=== PATIENT | female | born 1965 | race Caucasian/White ===

== ENCOUNTER 2018-05-14 01:01 | Outpatient (CLI) | payer OTHER, SELFPAY ==
--- NOTE | 2018-05-14 08:00 | DI.MAMMO_ITS ---
SYMPTOMS/DIAGNOSIS: SCREENING, PREVENTATIVE CARE, Z00.00 MAMMOGRAM: Mammograms were interpreted according to the usual protocol including computer analysis with CAD system, tomosynthesis and C view imaging. The breast tissue is heterogeneously radiodense which lowers the sensitivity of the study. There is no dominant mass. There are no suspicious calcifications. SUMMARY: No evidence of malignancy, Category I, yearly screening mammography is recommended. Breast density Category C. MQSA ASSESSMENT OF FINDINGS: Negative. Category 1. Patient will receive a letter notifying them of these results. Bi-RADS category C. The breasts are heterogeneously dense, which may obscure small masses.
== END 2018-05-14 01:21 ==
PROVIDERS: PCP Physician Assistant Medical; Visit Provider Physician Assistant Medical
DX: Z00.00 Encounter for general adult medical examination without abnormal findings (principal); Z12.31 Encounter for screening mammogram for malignant neoplasm of breast
CPT/HCPCS: 77063; 77067

== ENCOUNTER 2018-09-03 00:14 | Outpatient (CLI) | payer OTHER, SELFPAY ==
--- NOTE | 2018-09-03 08:21 | DI.US_ITS ---
SYMPTOM/DIAGNOSIS: POSTMENOPAUSAL BLEEDING, N95.0 PELVIC ULTRASOUND: Transabdominal and transvaginal exams were performed. The uterus measures 9 by 4.5 by 5.6 cm. No fibroids are identified. The endometrial stripe measures 10 mm. in thickness. There is abnormally thickened for a postmenopausal patient. No focal endometrial abnormality is visible. There is a 2.9 cm. cyst on the right ovary and a 2.1 cm. cyst on the left ovary. There is no evidence of suspicious mass or ovarian torsion. A 3.7 cm. cyst is seen at the inferior pole of the left kidney. There is no evidence of hydronephrosis. IMPRESSION: Thickened endometrium to 10 mm. Bilateral ovarian cysts.
== END 2018-09-03 00:34 ==
PROVIDERS: PCP Physician Assistant Medical; Visit Provider Physician Assistant Medical
DX: N95.0 Postmenopausal bleeding (principal); R93.89 Abnormal findings on diagnostic imaging of other specified body structures; N83.291 Other ovarian cyst, right side; N83.292 Other ovarian cyst, left side
CPT/HCPCS: 76830; 76856

== ENCOUNTER 2018-09-15 12:40 | Outpatient (REF) | payer OTHER, SELFPAY ==
--- NOTE | 2018-09-15 10:00 | PAPFT_PTH ---
PATIENT: Estrella Clark LOC: [facility] U#:[id number] AGE/SX: 53/F ROOM: RE09/15/[address]: Shai Sanders MD : 1965 BED: DIS: 09/15/2018 SPEC #: [id number] RECD: 09/15/18 18:12 STATUS: ULYSSES REQ #: [id number] ARIANNA: 09/15/18 10:[address]: Shai Sanders DEPT: [facility] Cytology RECD BY: Lilian Martines ENTERED: 09/15/18 18:12 SP TYPE: PAPFT OTHR DR: Mo Beasley Tissues: 1 - CX/ENDOCX FOR PAP SMEARS Procedures: PAP THIN PREP/UVM Screening HPV DNA PROBE Comments: [id number]
--- NOTE | 2018-09-15 10:00 | CER_PTH ---
PATIENT: Estrella Clark LOC: [facility] U#:[id number] AGE/SX: 53/F ROOM: RE09/15/[address]: Shai Sanders MD : 1965 BED: DIS: 09/15/2018 SPEC #: [id number] RECD: 09/15/18 18:00 STATUS: ULYSSES REBelkys #: [id number] ARIANNA: 09/15/18 10:[address]: Shai Sanders DEPT: Surgical Specimen RECD BY: Lilian Martines ENTERED: 09/15/18 18:01 SP TYPE: CER OTHR DR: Mo Beasley Tissues: 1 - CERVICAL BIOPSY 2 - ENDOMETRIUM BX/CURRETTE Procedures: GROSS AND MICRO LEVEL 4 Comments: [id number]
== END 2018-09-15 13:00 ==
LOC: LBN 12:40
PROVIDERS: PCP Physician Assistant Medical; Visit Provider Obstetrics & Gynecology
DX: N84.0 Polyp of corpus uteri (principal); N84.1 Polyp of cervix uteri; N85.8 Other specified noninflammatory disorders of uterus; N95.0 Postmenopausal bleeding
CPT/HCPCS: 88142; 88305; 87624

== ENCOUNTER 2018-11-05 08:03 | Day surgery (SDC) | payer OTHER, SELFPAY ==
[2018-11-05 08:18] VITALS: BP 122/72; PULSE 56; RESP 16; TEMP 35.1; O2SAT 100
[2018-11-05] MEDS: Lactated Ringers 1,000 ML 125 ML IV (08:37)
[2018-11-05 08:47] LABS: HGB 14.8 g/dL (12.0-15.5)
[2018-11-05] MEDS: Lidocaine 1% Pres-Free 5 ML VIAL (09:17)
--- NOTE | 2018-11-05 09:21 | ENDOMET_PTH ---
PATIENT: Estrella Clark LOC: [facility] U#:[id number] AGE/SX: 53/F ROOM: RE11/05/[address]: Shai Sanders MD : 1965 BED: DIS: 11/05/2018 SPEC #: [id number] RECD: 11/05/18 12:57 STATUS: ULYSSES REQ #: [id number] ARIANNA: 11/05/18 09:[address]: Shai Sanders DEPT: Surgical Specimen RECD BY: Lilian Martines ENTERED: 11/05/18 12:58 SP TYPE: Endomet OTHR DR: Mo Beasley Tissues: 1 - ENDOMETRIUM BX/CURRETTE Procedures: GROSS AND MICRO LEVEL 4 Comments: [id number]
--- NOTE | 2018-11-05 09:37 | W.PM.OP ---
Date of service: 11/05/18 Time of Service: 09:37 Operative Note DATE OF PROCEDURE: 11/05/18 PRE-OP DIAGNOSIS: Postmenopausal bleeding. Endometrial polyp POST-OP DIAGNOSIS: same PROCEDURE: Hysteroscopy D&C SURGEON: Shai Sanders ANESTHESIA: MAC and local ESTIMATED BLOOD LOSS: 0 PATHOLOGY: other (Endometrial curettings ) COMPLICATIONS: None Patient was transported to: same day Patient's condition: stable Indications: Postmenopausal bleeding. Endometrial polyp on office biopsy. Findings: Small broad based EM polyp near the right tubal ostia Procedure Description: The patient was taken to the operating room and after adequate sedation was achieved, the patient was placed in lithotomy position. The patient was prepped and draped in the usual sterile fashion. A weighted speculum was placed in the vagina with good visualization of the cervix. A paracervical block with 10cc of 1% lidocaine was placed. The 5mm 30 degree hysteroscope with NS distention media was advanced easily. A broad based small polyp was noted near the right tubal ostia. The hysteroscope was removed and cervix dilated with Javier dilators. A sharp curettage was performed and specimen was submitted to pathology. Excellent hemostasis was noted. All instrumentation was removed. The procedure was tolerated well and patient transferred to PACU in stable condition. Sponge and instrument counts were correct at the conclusion of the procedure.
[2018-11-05 09:57] VITALS: BP 113/61; PULSE 51; RESP 16; TEMP 35.7; O2SAT 100
== END 2018-11-05 10:40 | disposition home or self-care (01) ==
PROVIDERS: PCP Physician Assistant Medical; Visit Provider Obstetrics & Gynecology
PROC: 0UDB8ZZ Extraction of Endometrium, Via Natural or Artificial Opening Endoscopic (ICD-10-PCS; CPT 58558; principal; 2018-11-05 09:15)
DX: N95.0 Postmenopausal bleeding (principal); N84.0 Polyp of corpus uteri
CPT/HCPCS: 58558; 36415; 88305; 85014; 85018; J0131; J1100; J1885; J2405

== ENCOUNTER 2019-11-09 02:01 | Outpatient (CLI) | payer OTHER, SELFPAY ==
--- NOTE | 2019-11-09 | DI.MAMMO_ITS ---
EXAM: MAMMO SCREENING CLINICAL HISTORY: SCREENING, Z12.31, [facility], Z00.00 TECHNIQUE: Mammograms were interpreted according to the usual protocol including computer analysis w [employer] system, tomosynthesis and C-view imaging. FINDINGS: The breasts are heterogeneously dense. No dominant mass or clumped microcalcification is identified in either breast. Current examination is compared with previous examinations including April and there has been no gross interval change in appearance in comparison with the previous studies. IMPRESSION: No specific evidence of malignancy at this time. Routine screening examinations are suggested at yea rly intervals due to the family history of breast carcinoma. Category 1. Breast density, category C . BI-RADS Cat 1 - Negative. Breast Density - Category C - Heterogeneously dense.
== END 2019-11-09 02:21 ==
PROVIDERS: PCP Physician Assistant Medical; Visit Provider Physician Assistant Medical
DX: Z12.31 Encounter for screening mammogram for malignant neoplasm of breast (principal); Z00.00 Encounter for general adult medical examination without abnormal findings; Z80.3 Family history of malignant neoplasm of breast
CPT/HCPCS: 77063; 77067

== ENCOUNTER 2020-08-24 15:16 | Outpatient (REF) | payer OTHER, SELFPAY ==
[2020-08-24 18:48] LABS: Anion Gap 9.4 mmol/L (3-11); BUN 11 mg/dL (7-18); CO2 26.6 mmol/L (21.0-32.0); CREATININE 0.84 mg/dL (0.55-1.02); Calcium 9.2 mg/dL (8.5-10.1); Calculated LDL 105 mg/dL (<100); Chloride 104 mmol/L (98-107); Cholesterol 211 mg/dL (<200); Glucose 103 mg/dL (74-106); HDL Cholesterol 83 mg/dL (40-60); Potassium 4.5 mmol/L (3.5-5.1); Sodium 140 mmol/L (136-145); TSH (W/Ref FT4) 1.94 uIU/mL (0.36-3.74); Triglyceride 118 mg/dL (<150)
== END 2020-08-24 15:36 ==
LOC: NCHCN 15:16
PROVIDERS: PCP Physician Assistant Medical; Visit Provider Physician Assistant Medical
DX: Z00.00 Encounter for general adult medical examination without abnormal findings (principal); Z13.220 Encounter for screening for lipoid disorders; Z13.29 Encounter for screening for other suspected endocrine disorder
CPT/HCPCS: 80048; 80061; 84443

== ENCOUNTER 2021-01-23 22:27 | Observation (INO) | payer OTHER, SELFPAY ==
[2021-01-23] VITALS (10 sets, daily range): BP systolic 126–133; BP diastolic 68–71; PULSE 80–98; RESP 11–23; TEMP 36.9; O2SAT 95–99
--- NOTE | 2021-01-23 22:29 | W.ED.GENAD ---
Discharge Plan Disposition Patient Disposition: [facility] INPATIENT Condition: Stable Discharge Details Chief Complaint: GenMedical Clinical Impression: Ataxia Primary Care Provider: Mo Bealsey ED Provider: Karlee Le Home Meds and New Rx's Prescriptions: No Action cholecalciferol (vitamin D3) 1,000 unit capsule 1,000 unit PO DAILY RF: 0 Medical Decision Making Patient is a pleasant 55-year-old female presenting today with chief complaint of feeling generally unwell and unsteady. Primary symptom is feeling dissociated. Reports that symptoms came on suddenly at approximately 8 PM when she was sitting. She is patient says that she felt that her speech has been slowed and she has been having difficulty with ambulation and feeling unsteady. She denies any headache, visual changes. No focal deficit. Denies any nausea or vomiting. No chest pain or shortness of breath. Denies any palpitations. Patient does report that she fell while running this morning she did fall. Denies striking her head but states she suffers from whiplash. States that this pain did side throughout the course of the day. Is denying any neck pain currently. Reports the remaining of the day she was swimming and spending time with her family. Symptoms came on when she was at rest tonight. On exam, patient appears nontoxic. Vital signs are within normal limits. She appears well-hydrated. Lungs are clear. No lower extremity edema or calf tenderness. Neurologic exam is intact although patient feels that her speech is slower than typical. She also has significant difficulty with tandem gait and falls frequently. She does have normal Romberg, lcfuwk-xp-ysoq testing. No weakness is appreciated. No visual changes. At this time, differential includes CVA, cervical arterial dissection, metabolic derangement, thyroid dysfunction, arrhythmia versus other. Plan for CTA head and neck and labs. Discussed this plan with the patient who is in agreement. EKG was obtained and reviewed by Dr. Wong. There was significant artifact. Conclusion was atrial fibrillation. However, when watching the patient on the monitor she does not appear this irregular. Rate of 96. When she has calmed down slightly we will repeat the EKG. Labs reviewed. No leukocytosis. Stable H&H. No significant abnormalities. Potassium was slightly low at 3.3. Troponin within normal limits. TSH elevated at 4.75 but free T4 reflex is 0.99. CT reviewed by radiologist: FINDINGS: ANTERIOR CIRCULATION: Right internal carotid artery: Unremarkable. Intracranial segment is patent with no significant stenosis. No aneurysm. Right middle cerebral artery: Unremarkable. No occlusion or significant stenosis. No aneurysm. Right anterior cerebral artery: Unremarkable. No occlusion or significant stenosis. No aneurysm. Left internal carotid artery: Unremarkable. Intracranial segment is patent with no significant stenosis. No aneurysm. Left middle cerebral artery: Unremarkable. No occlusion or significant stenosis. No aneurysm. Left anterior cerebral artery: Unremarkable. No occlusion or significant stenosis. No aneurysm. POSTERIOR CIRCULATION: Right vertebral artery: Unremarkable. No occlusion or significant stenosis. No aneurysm. Left vertebral artery: Unremarkable. No occlusion or significant stenosis. No aneurysm. Basilar artery: Unremarkable. No occlusion or significant stenosis. No aneurysm. Right posterior cerebral artery: Unremarkable. No occlusion or significant stenosis. No aneurysm. Left posterior cerebral artery: Unremarkable. No occlusion or significant stenosis. No aneurysm. Brain: No definite mass, mass effect, or midline shift. Cerebral ventricles: No ventriculomegaly. Bones/joints: Unremarkable. No acute fracture. Soft tissues: There are multiple scalp calcifications. IMPRESSION: No large vessel stenosis or occlusion. FINDINGS: Right common carotid artery: No stenosis. No dissection or occlusion. Right internal carotid artery: No stenosis of the extracranial segment. No dissection or occlusion. Right external carotid artery: No occlusion or stenosis of the origin. Left common carotid artery: No stenosis. No dissection or occlusion. Left internal carotid artery: No stenosis of the extracranial segment. No dissection or occlusion. Left external carotid artery: No occlusion or stenosis of the origin. Right vertebral artery: No stenosis. No dissection or occlusion. Left vertebral artery: No stenosis. No dissection or occlusion. Soft tissues: Normal. No significant soft tissue swelling. Bones/joints: No acute fracture. IMPRESSION: No stenosis or occlusion. Reevaluated the patient. She reports feeling somewhat improved. She does look much calmer. Repeated neurologic exam. She seems much more brisk in her ability to perform the tasks including mhdexb-lm-zcej testing. Ambulation does appear improved and more sure footed. She continues to have difficulty with tandem gait however. With this focal finding, I remain concerned for potential injury nail pathology and plan to admit for MRI tomorrow. I did discuss this plan with the patient is in agreement. Consulted with Dr. Fernandez who agrees to admission for continued monitoring and MRI for morning. HPI General Mode of arrival: EMS. Date/Time Provider Initiated Documentation: 01/23/21 22:29. Limitations to Documentation: no limitations. Information obtained by: patient, EMS and RN notes reviewed. History of Present Illness 55 year old F presents to the emergency department with the chief complaint of unsteady, feels disassociated, described as moderate, and is localized to the head. Patient started experiencing this hour(s) (2019 this evening) and it has been constant. Immobilization improves symptom(s), Movement worsens symptoms . Patient notes denies confusion, chest pain, diaphoresis, fever/chills, headaches, nausea/vomiting, shortness of breath and weakness. Patient did receive the following treatments prior to arrival, none Related Data Home Medications Medication Instructions Recorded Confirmed cholecalciferol (vitamin D3) 25 1,000 unit PO DAILY 09/15/18 11/05/18 mcg (1,000 unit) capsule Allergies Allergy/AdvReac Type Severity Reaction Status Date / Time penicillin V Allergy Verified 09/12/20 15:26 Review of Systems Constitutional Constitutional: Reports as per HPI, Denies chills, Denies fever(s), Denies frequent falls, Denies headache(s), Denies snoring and Denies weakness Eyes Eyes: Reports as per HPI, Denies blurry vision, Denies change in vision and Reports photophobia ENT Ears, Nose, Mouth, and Throat: Reports vertigo, Reports dizziness, Denies headache(s), Denies neck pain and Reports disequilibrium Cardiovascular Cardiovascular: Reports as per HPI, Denies chest pain, Reports rapid heart rate, Denies lightheadedness, Denies radiating jaw, neck or arm pain, Denies dyspnea and Denies dyspnea on exertion Respiratory Respiratory: Reports as per HPI, Denies chest congestion, Denies cough, Denies dyspnea, Denies dyspnea on exertion, Denies snoring, Denies stridor and Denies wheezing Gastrointestinal Gastrointestinal: Reports as per HPI, Denies abdominal pain, Denies change in bowel habits, Denies nausea and Denies vomiting Musculoskeletal Musculoskeletal: Reports as per HPI, Reports abnormal gait, Denies back pain, Denies myalgias, Denies muscle cramps, Denies neck pain and Denies numbness Integumentary/Breasts Skin/Breast: Reports as per HPI and Denies rash Neurologic Neurologic: Reports as per HPI, Denies abnormal speech, Reports abnormal gait, Denies behavioral changes, Denies confusion, Reports vertigo, Reports dizziness, Denies frequent falls, Denies headache(s), Denies localized weakness, Denies numbness, Denies sensory deficit, Reports disequilibrium and Denies weakness Psychiatric Psychiatric: Denies behavioral changes and Denies confusion Allergic/Immunologic Allergic/Immunologic: Denies wheezing [facility] Medical History Postmenopausal bleeding Surgical History History of delivery Social History Smoking/Tobacco Use Status: Never Smoking risk assessment performed?: Yes Alcohol Intake: current Drug use: Never Substance use type: does not use Exam Const General: cooperative, comfortable, no acute distress, well developed, well groomed and ill appearing acutely Nutritional Appearance: average body habitus and well nourished Orientation: alert, awake and oriented x3 HENMT Head: normal to inspection, no palpable skull fracture, normocephalic and atraumatic Ears: hearing grossly normal bilaterally, external ears normal and TM's normal bilaterally General nose exam: external nose normal Mouth: oral mucosae normal and moist mucous membranes Throat: posterior oropharynx normal Eyes General: appearance normal, both eyes and all related structures Visual Rivas: normal visual rivas by confrontation Alignment and Position: alignment normal Periorbital: periorbital findings normal Eyelids: eyelids normal Sclera: sclerae normal Cornea: corneas normal Pupils: PERRL EOM: EOM intact bilaterally Neck Neck: normal visual inspection, full ROM, no lymphadenopathy and no meningeal signs Resp Effort & Inspection: normal respiratory effort, able to speak in complete sentences and no respiratory distress Auscultation: clear to auscultation bilaterally, no rales, no rhonchi and no wheezes Cardio Rate: regular rate Rhythm: regular rhythm Heart Sounds: S1 normal and S2 normal GI Inspection: normal to inspection and non-distended Palpation: soft, no hepatosplenomegaly, not firm, no guarding, not rigid and nontender Percussion: normal to percussion Auscultation: normal bowel sounds Back/Spine/Pelvis Cervical Spine: normal cervical lordosis and cervical ROM normal Skin General skin exam: no rashes or lesions noted Neuro General: patient alert, patient awake and patient oriented x3 Cranial Nerves: CN's II-XI intact bilaterally Cognition: normal cognition Speech: speech normal Gait: normal gait Motor: muscle tone normal throughout, strength 5/5 throughout, no pronator drift, no movement abnormalities noted and no fasciculations Sensory Exam: no sensory deficits noted DTR's: Rt Brachioradialis: 2+, Lt Brachioradialis: 2+, Rt Patellar: 2+ and Lt Patellar: 2+ Coordination: vtgybm-qm-dloz test normal, vnor-zv-gwaw test normal, Romberg test normal, tandem gait abnormal (unable to preform, falls quickly) and Does not sway with eyes open Extrem General: normal to inspection, capillary refill normal, no pedal edema and no calf tenderness Psych Appearance: grossly normal and well kempt Mental Status: mental status grossly normal Speech and Movement: speech and movement normal
--- NOTE | 2021-01-23 22:30 | RT.EKG_ITS ---
APPROVED REPORT Exam: Resting ECG Reason for Exam: general unwell, dizziness Patient Location: E HR:96 bpm ECG Measurements Heart Rate 96 AXIS OR [id number] P [id number] QRSd 133 QRS 56 QT 376 T 46 QTc 475 Conclusion Atrial fibrillation...V-rate 70-111, irreg A-activity Nonspecific intraventricular conduction delay...QRSd >115mS, not LBBB/RBBB. Artifact. Afib. I have reviewed and interpreted ECG and agree with software generated interpretation.
--- NOTE | 2021-01-23 22:45 | DI.CT_ITS ---
Exam(s) CT BRAIN NECK CTA EXAM: CT BRAIN NECK CTA CLINICAL HISTORY: sudden onset balance difficulty and change in spee. TECHNIQUE: Imaging Protocol: Axial CT angiography was performed with multi-slice acquisition and mu lti-planar and/or 3D reconstructions. CONTRAST MATERIAL: Intravenous: Omnipaque 350 Contrast volume:85 mL COMPARISON: No exams were available for comparison FINDINGS: CT Head W/O and W: Ventricles and Extra axial spaces: Normal in size and morphology for the patient's age. Hemorrhage: None. Cerebral parenchyma: Normal. Midline shift: None. Brainstem/Cerebellum: Normal. Calvarium: Normal. Visualized Paranasal sinuses/Mastoids: Clear. Soft Tissues: Unremarkable. Enhancement: Unremarkable. CTA Neck W: Common Carotid: Right: No dissection, occlusion or significant stenosis. Left: No dissection, occlusion or significant stenosis. External Carotid: Right: No occlusion or significant stenosis. Left: No occlusion or significant stenosis. Internal Carotid: Right: No dissection, occlusion or significant stenosis. Left: No dissection, occlusion or significant stenosis. Vertebral Artery: Right: No dissection, occlusion or significant stenosis. Left: No dissection, occlusion or significant stenosis. Lung Apices: Normal. Thryoid: Unremarkable. Bones: Mild degenerative changes are seen in the cervical spine particularly at C4-5 and C5-C6. Soft Tissues: Normal. CTA Brain W: Internal Carotid Arteries: Petrous: Normal. Cavernous: Normal. Cerebral: Normal. Anterior Cerebral Arteries: Right: No aneurysm, occlusion or significant stenosis. Left: No aneurysm, occlusion or significant stenosis. Middle Cerebral Arteries: Right: No aneurysm, occlusion or significant stenosis. Left: No aneurysm, occlusion or significant stenosis. Posterior cerebral Arteries: Right: No aneurysm, occlusion or significant stenosis. Left: No aneurysm, occlusion or significant stenosis. Vertebral Arteries: Right: No aneurysm, occlusion or significant stenosis. Left: No aneurysm, occlusion or significant stenosis. Basilar Artery: No aneurysm, occlusion or significant stenosis. IMPRESSION: 1. No occlusion or significant stenosis in the phqeki-sv-Djzqcv. 2. Unremarkable noncontrast CT Head. 3. No occlusion or significant stenosis on the CT angiography of the neck. RADIATION DOSE DELIVERED: 1,855.03mGy.cm Total DLP DATA REPOSITORY: All CT scans at this facility are submitted to the National Radiology Data Registry (NRDR) Dose Index Registry (DIR) with the [employer] (A[employer]). RADIATION OPTIMIZATION: All CT scans at this facility use at least one of these dose optimization te chniques: automated exposure control; mA and/or kV adjustment per patient size (includes targeted exa ms where dose is matched to clinical indication); or iterative reconstruction.
[2021-01-23 23:03] LABS: Abs Immature Grans 0.01 10^3/uL (0.0-0.06); Absolute Basophil Count 0.05 10^3/uL (0.0-0.2); Absolute Eosinophil Count 0.18 10^3/uL (0.0-0.7); Absolute Lymphocyte Count 2.67 10^3/uL (1.2-3.4); Absolute Monocyte Count 0.64 10^3/uL (0.1-0.8); Absolute Neutrophil Count 3.06 10^3/uL (1.2-6.7); Basophils % 0.8; Eosinophils % 2.7; HCT 36.5 % (36.0-46.0); HGB 12.9 g/dL (11.2-15.7); Immature Grans % 0.2; Lymphocytes % 40.4; MCH 31.9 pg (27.0-33.0); MCHC 35.3 % (32.0-36.0); MCV 90.3 fL (80-95); MPV 9.8 fL (8.0-11.0); Monocytes % 9.7; Neutrophils % 46.2; Nucleated RBC 0 %; Platelet Count 272 10^3/uL (130-400); RBC 4.04 10^6/uL (3.93-5.22); RDW-SD 39.7 fL; WBC 6.61 10^3/uL (4.4-10.8)
[2021-01-23 23:18] LABS: PTT Activated 24.2 sec (21.0-27.5); Prothrombin Time 9.9 sec (9.3-11.0)
[2021-01-23 23:25] LABS: ALT 18 U/L (14-59); AST 15 U/L (15-37); Albumin 3.9 g/dL (3.4-5.0); Alkaline Phosphatase 75 U/L (46-116); Anion Gap 7.9 mmol/L (3-11); BUN 15 mg/dL (7-18); Bilirubin, Total 0.3 mg/dL (0.2-1.0); CO2 27.1 mmol/L (21.0-32.0); CREATININE 0.8 mg/dL (0.55-1.02); Chloride 99 mmol/L (98-107); Glucose 136 mg/dL (74-106); Potassium 3.3 mmol/L (3.5-5.1); Sodium 134 mmol/L (136-145); Total Protein 7.1 g/dL (6.4-8.2)
[2021-01-23 23:27] LABS: TSH (W/Ref FT4) 4.75 uIU/mL (0.36-3.74)
[2021-01-23 23:28] LABS: Troponin I < 0.05 ng/mL (<0.06)
[2021-01-23] MEDS: Omnipaque 350 MG/ML 100 ML BTL IJ (23:30)
--- NOTE | 2021-01-23 23:30 | RT.EKG_ITS ---
APPROVED REPORT Exam: Resting ECG Reason for Exam: weakness Patient Location: E HR:92 bpm ECG Measurements Heart Rate 92 AXIS CO 143 P 8 QRSd 83 QRS 60 QT 356 T 60 QTc 441 Conclusion Sinus rhythm...normal P axis, V-rate 60- 99 Normal Electrocardiogram I have reviewed and interpreted ECG and agree with software generated interpretation.
[2021-01-23] MEDS: Normal Saline Flush 10 ML SYR IVP (23:31)
[2021-01-23] MEDS: Normal Saline - Diluent 50 ML VIAL IV (23:31)
[2021-01-23] MEDS: Normal Saline 1,000 ML 1000 ML IV (23:40)
[2021-01-23 23:44] LABS: FREE T4 0.99 ng/dL (0.76-1.46)
--- NOTE | 2021-01-23 23:54 | DI.VRAD_ITS ---
PROCEDURE INFORMATION: Exam: CT Angiography Head With Contrast, Arteriography Exam date and time: 01/23/2021 11:09 PM Age: 55 years old Clinical indication: Speech disturbance and other: Balance difficulty and changes in speech; Type not specified; Patient HX: Sudden onset balance difficulty and change in speech TECHNIQUE: Imaging protocol: Computed tomography angiography of the head with contrast. Exam focused on the arteries. 3D rendering (Not supervised by radiologist): MIP and/or 3D reconstructed images were created by the technologist. Total images: 2819 Radiation optimization: All CT scans at this facility use at least one of these dose optimization techniques: automated exposure control; mA and/or kV adjustment per patient size (includes targeted exams where dose is matched to clinical indication); or iterative reconstruction. Contrast material: OMNIPAQUE 350; Contrast volume: 85 ml; Contrast route: INTRAVENOUS (IV); COMPARISON: No relevant prior studies available. FINDINGS: ANTERIOR CIRCULATION: Right internal carotid artery: Unremarkable. Intracranial segment is patent with no significant stenosis. No aneurysm. Right middle cerebral artery: Unremarkable. No occlusion or significant stenosis. No aneurysm. Right anterior cerebral artery: Unremarkable. No occlusion or significant stenosis. No aneurysm. Left internal carotid artery: Unremarkable. Intracranial segment is patent with no significant stenosis. No aneurysm. Left middle cerebral artery: Unremarkable. No occlusion or significant stenosis. No aneurysm. Left anterior cerebral artery: Unremarkable. No occlusion or significant stenosis. No aneurysm. POSTERIOR CIRCULATION: Right vertebral artery: Unremarkable. No occlusion or significant stenosis. No aneurysm. Left vertebral artery: Unremarkable. No occlusion or significant stenosis. No aneurysm. Basilar artery: Unremarkable. No occlusion or significant stenosis. No aneurysm. Right posterior cerebral artery: Unremarkable. No occlusion or significant stenosis. No aneurysm. Left posterior cerebral artery: Unremarkable. No occlusion or significant stenosis. No aneurysm. Brain: No definite mass, mass effect, or midline shift. Cerebral ventricles: No ventriculomegaly. Bones/joints: Unremarkable. No acute fracture. Soft tissues: There are multiple scalp calcifications. IMPRESSION: No large vessel stenosis or occlusion. PROCEDURE INFORMATION: Exam: CT Angiography Neck With Contrast Exam date and time: 01/23/2021 11:09 PM Age: 55 years old Clinical indication: Speech disturbance and other: Balance difficulty and changes in speech; Type not specified; Patient HX: Sudden onset balance difficulty and change in speech TECHNIQUE: Imaging protocol: Computed tomography angiography of the neck with contrast. 3D rendering (Not supervised by radiologist): MIP and/or 3D reconstructed images were created by the technologist. Radiation optimization: All CT scans at this facility use at least one of these dose optimization techniques: automated exposure control; mA and/or kV adjustment per patient size (includes targeted exams where dose is matched to clinical indication); or iterative reconstruction. Contrast material: OMNIPAQUE 350; Contrast volume: 85 ml; Contrast route: INTRAVENOUS (IV); COMPARISON: No relevant prior studies available. FINDINGS: Right common carotid artery: No stenosis. No dissection or occlusion. Right internal carotid artery: No stenosis of the extracranial segment. No dissection or occlusion. Right external carotid artery: No occlusion or stenosis of the origin. Left common carotid artery: No stenosis. No dissection or occlusion. Left internal carotid artery: No stenosis of the extracranial segment. No dissection or occlusion. Left external carotid artery: No occlusion or stenosis of the origin. Right vertebral artery: No stenosis. No dissection or occlusion. Left vertebral artery: No stenosis. No dissection or occlusion. Soft tissues: Normal. No significant soft tissue swelling. Bones/joints: No acute fracture. IMPRESSION: No stenosis or occlusion. REFERENCES: NASCET CRITERIA. The degree of internal carotid artery stenosis is based on NASCET criteria. Normal is no stenosis. Mild is less than 50% stenosis. Moderate is 50-69% stenosis. Severe is 70% to 99% stenosis. Total occlusion is no detectable patent lumen. Dictated and Authenticated by: Aquiles Hill MD. Ordering:KARI Desir MD
[2021-01-24] VITALS (20 sets, daily range): BP systolic 95–133; BP diastolic 48–72; PULSE 52–97; RESP 13–22; TEMP 36.7–37.3; O2SAT 94–100
--- NOTE | 2021-01-24 | DI.MRI_ITS ---
Exam(s) MR BRAIN W EXAM: MR BRAIN W CLINICAL HISTORY: TIA; abnormal non-contrast MRI TECHNIQUE: Multiplanar multisequence MRI of the brain was performed. CONTRAST MATERIAL: IV Contrast: 11 ML of Dotarem contrast administered. COMPARISON: MR MR BRAIN WO from 01/24/2021 FINDINGS: VENTRICLES AND EXTRA AXIAL SPACES: Normal in size and morphology for the patient's age. CEREBRAL PARENCHYMA: No space-occupying lesion identified. MIDLINE SHIFT: None. BRAINSTEM/CEREBELLUM: Normal. CALVARIUM: Normal. ENHANCEMENT: No suspicious enhancement identified. [place]: Normal flow void. PITUITARY GLAND: Unremarkable. OTHER FINDINGS: IMPRESSION: 1. No suspicious enhancement is identified. 2. Differential considerations for the white matter lesions seen on the MRI of the brain from earlier in the day include demyelinating processes such as MS, vasculitis, chronic microvascular ischemic di sease, white matter injury or inflammatory process. DATA REPOSITORY:
--- NOTE | 2021-01-24 01:01 | HPE_ITS ---
Date of service: 01/24/21 Time of Service: 01:01 Assessment and Plan Assessment and plan (1) Ataxia: Status: Acute Assessment and plan: Acute onset spell manifesting with dissociative state followed by atypical vertigo like symptoms and subsequent ataxia. I think atypical labyrinthitis presents the least unlikely diagnosis, but hard to fit the mental changes into that schema. A posterior fossa stroke possible as well. For now will give single dose ASA, neuro checks, and plan MRI in AM. 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 Then last night while sitting on couch had sudden onset of a strange dissociative state in which she felt like she was observing herself. Thereafter had brief vertinginous sense, few brief episodes of nausea, and then feeling that her balance was off, gait not quite coordinated, and that her speech is somewhat slower than usual. Came to ER, w/u of note for normal CBC and chemistries and head/neck CTA WNL. Admitted for further observation and evaluation. No ONEIL, change in vision or focal weakness or sensory changes. Review of Systems All systems reviewed & are unremarkable except as noted in HPI and below PFSH Medical History Postmenopausal bleeding Surgical History History of delivery Social History Smoking/Tobacco Use Status: Never Smoking risk assessment performed?: Yes Alcohol Intake: current Drug use: Never Substance use type: does not use Meds Allergies and Home Medications Allergies Allergy/AdvReac Type Severity Reaction Status Date / Time penicillin V Allergy Verified 09/12/20 15:26 Home Medications Medication Instructions Recorded Confirmed Type cholecalciferol (vitamin D3) 25 1,000 unit PO DAILY 09/15/18 11/05/18 History mcg (1,000 unit) capsule Exam Narrative Exam Narrative: 124/64, 88, 36.9, 20, 97% RA. HEENT atraumatic, left ptosis (baseline); neck supple; lungs clear; heart RRR; abdomen soft and NT; extremities w/o edema, pulses 2+/=; neuro Ox3, lucid, speech fluent; EOMI, PERRL, lucio full, intact light touch face; no facial asymmetry, tongue midlin e; motor 5/5; sensory intact light touch; FTN/HTS WNL; gait slightly halting and wide based; tandem gait fair-poor Results Labs Result diagrams: 01/23/21 22:55 01/23/21 22:55 Labs: Laboratory Results - last 24 hr 01/23/21 01/23/21 01/23/21 22:55 22:55 22:55 WBC 6.61 RBC 4.04 Hgb 12.9 Hct 36.5 MCV 90.3 MCH 31.9 MCHC 35.3 RDW 12.0 Plt Count 272 MPV 9.8 Immature Gran % 0.2 Neutrophils % 46.2 Lymphocytes % 40.4 Monocytes % 9.7 Eosinophils % 2.7 Basophils % 0.8 Nucleated RBC % 0 Absolute Neutrophils 3.06 Absolute Lymphocytes 2.67 Absolute Monocytes 0.64 Absolute Eosinophils 0.18 Absolute Basophils 0.05 PT INR APTT Sodium 134 L Potassium 3.3 L Chloride 99 Carbon Dioxide 27.1 Anion Gap 7.9 BUN 15 Creatinine 0.8 Estimated GFR/1.73 m2 >= 60.00 Glucose 136 H Calcium 9.0 Magnesium 2.0 Total Bilirubin 0.3 AST 15 ALT 18 Alkaline Phosphatase 75 Troponin I < 0.05 Total Protein 7.1 Albumin 3.9 TSH 4.75 H Free T4 0.99 01/23/21 22:55 WBC RBC Hgb Hct MCV MCH MCHC RDW Plt Count MPV Immature Gran % Neutrophils % Lymphocytes % Monocytes % Eosinophils % Basophils % Nucleated RBC % Absolute Neutrophils Absolute Lymphocytes Absolute Monocytes Absolute Eosinophils Absolute Basophils PT 9.9 INR 1.0 APTT 24.2 Sodium Potassium Chloride Carbon Dioxide Anion Gap BUN Creatinine Estimated GFR/1.73 m2 Glucose Calcium Magnesium Total Bilirubin AST ALT Alkaline Phosphatase Troponin I Total Protein Albumin TSH Free T4 Last Vital Signs Temp 36.9 C 01/23/21 22:20 Pulse 88 01/24/21 00:38 Resp 20 01/24/21 00:40 BP 124/64 01/24/21 00:38 Pulse Ox 97 01/24/21 00:40 COVID-19 Screening Have you, or household traveled for leisure in last 14 days?: No Had IN PERSON contact w/suspected or confirmed C-19 person: No
[2021-01-24 02:29] LABS: Source Nasal/Nares
[2021-01-24 02:47] LABS: Troponin I < 0.05 ng/mL (<0.06)
--- NOTE | 2021-01-24 09:02 | DI.MRI_ITS ---
Exam(s) MR BRAIN WO EXAM: MR BRAIN WO CLINICAL HISTORY: acute onset ataxia TECHNIQUE: Multiplanar multisequence MRI of the brain was performed. COMPARISON: CT CT BRAIN NECK CTA from 01/23/2021 FINDINGS: VENTRICLES AND EXTRA AXIAL SPACES: Normal in size and morphology for the patient's age. MIDLINE SHIFT: None. CEREBRAL PARENCHYMA: No focus of restricted diffusion to suggest acute infarct. No space-occupying le don identified. There are several white matter foci present on the FLAIR and T2 weighted images. Th e largest measures 7 mm and is in the left parietal lobe. HEMORRHAGE: None. BRAINSTEM/CEREBELLUM: Normal. CALVARIUM: Normal. VISUALIZED PARANASAL SINUSES/MASTOIDS:Clear. [place]: Normal flow void. PITUITARY GLAND: Unremarkable. OTHER FINDINGS: None. IMPRESSION: 1. No evidence of an acute infarct. 2. Several white matter foci on the FLAIR and T2 weighted images. Differential considerations includ e, but are not limited to, demyelinating disease such as MS, inflammatory/infectious conditions, vasc ulitis, deep white matter injury, metastasis or chronic small vessel ischemic disease. A postcontras t MRI may be considered for further evaluation. DATA REPOSITORY:
[2021-01-24 09:41] LABS: COVID-19 PCR Negative (Negative)
--- NOTE | 2021-01-24 10:35 | IN_ITS ---
Date of service: 01/24/21 Time of Service: 10:35 PT Notes Visit Reasons: Ataxia Physical Therapy Inpatient Initial Evaluation Date: 01/24/2021 Referring Doctor: Kamlesh Christiansen MD PT Orders: PT CONSULT: Fall safety assessment. Evaluate and treat for vertigo, gait ataxia Precautions: Fall. Standard. Activity as tolerated. Patient Profile/Admitting Diagnosis: Estrella is a 55-year female who presented to the ED 01/23/2021 with report of unsteadiness and feelings of being unwell and dissociated, slowing of speech, and difficulty with ambulation. She also demonstrated terms of vertigo with a few episodes of nausea and being off balance. Per chart patient went out for a run yesterday morning and landed on her outstretched hands and hit her chin. Patient is diagnosed with ataxia with a question of atypical labyrinthitis. Head and neck CTA are normal. MRI did not show any evidence of acute infarct. 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 Runs 2 miles regularly. Independent with all aspects of ADLs. Does not use any assistive device nor any adaptive equipment. Equipment Owned/DME: None Subjective: Continues to report fogginess and a sense of being off balance but of less intensity compared to yesterday. She elaborates that said symptoms are not position-related. States that she would have done better in the balance test. She did today. Also reports mild headache. Also indicated that nothing has changed with her gait except for being a little slow. Objective: General Observation: Telemetry monitoring in place. Mental Status: Alert and oriented as to person, place, time, and purpose. Able to pay attention, focus, and respond appropriately. Pain: 0/10 ROM: Right Upper Extremity: Shoulder Flexion WFL. Shoulder abduction WFL. Shoulder ER/IR WFL. Elbow flexion WFL. Forearm pronation/supination WFL. Wrist flexion WFL. Opening and closing of hand WFL. Left Upper Extremity: Shoulder Flexion WFL. Shoulder abduction WFL. Shoulder ER/IR WFL. Elbow flexion WFL. Forearm pronation/supination WFL. Wrist flexion WFL. Opening and closing of hand WFL. Right Lower Extremity: Hip flexion WFL. Hip abduction WFL. Hip ER/IR WFL. Knee f lexion WFL. Knee extension. Ankle dorsiflexion/eversion WFL. Ankle plantarflexion/inversion WFL. Left Lower Extremity: Hip flexion WFL. Hip abduction WFL. Hip ER/IR WFL. Knee flexion WFL. Knee extension. Ankle dorsiflexion WFL. Ankle plantarflexion WFL. Strength: Right Upper Extremity: Shoulder flexors 5/5. Shoulder abductors 5/5. Shoulder ER 5/5. Shoulder IR 5/5. Forearm pronators 5/5. Forearm supinators 5/5. Elbow flexors 5/5. Elbow extensors 5/5. Picking Crew Supervisor strong. Left Upper Extremity: Shoulder flexors 5/5. Shoulder abductors 5/5. Shoulder ER 5/5/ Shoulder IR 5/5. Forearm pronators 5/5. Forearm supinators 5/5. Elbow flexors 5/5. Elbow extensors 5/5. Picking Crew Supervisor strong. Right Lower Extremity: Hip flexors 5/5. Hip abductors 5/5. Hip external rotators 5/5. Hip internal rotators 5/5. Knee flexors 5/5. Knee extensors 5/5. Ankle dorsiflexors/evertors 5/5. Ankle plantarflexors/invertors 5/5. Left Lower Extremity: Hip flexors 5/5. Hip abductors 5/5. Hip external rotators 5/5. HIp internal rotators 5/5. Knee flexors 5/5. Knee extensors 5/5. Ankle dorsiflexors/evertors 5/5. Ankle plantarflexors/invertors 5/5. Bed Mobility/Transfers: Rolling independent Supine to sit independent Sit to supine independent Sit to stand independent Stand to sit independent Bed to chair independent Chair to bed independent Gait: Guided patient through level surface ambulation of about 300 feet without an assistive device with full weight bearing requiring only supervision with no gait abnormality seen except for what patient considers a slower walking speed than she typically does pre-admission. No exacerbation of fogginess. No increase in headache. Balance: Static Sitting: Normal Dynamic Sitting: Normal Static Standing: Normal Dynamic Standing: Good Special Tests: Mobility Limitations Standardized Measure [employer] AM-PAC 6 clicks Basic Mobility Inpatient Short Form: Raw Score: 23 CMS Score: 11% deficit Testing for Vertigo: No report of fullness in B ears. No report of instability in the neck. No pain in the anterior nor posterior neck areas and therefore did not need to perform Alar Ligament Test nor Sharp-Sarah test. No resting nystagmus seen. Nupur-Hallpike maneuver was done for R and L but patient did not demonstrate nystagmus nor did she report symptom exacerbation of fogginess/lightheadedness. Romberg Test: Produced very minimal swaying during the first few seconds but disappeared toward the middle and end of the test duration. 4-Stage Balance Test: Able to maintain feet together for 10 seconds and with semi-tandem but was mildly shaky with the latter. Was moderately shaky with the full tandem stance and with the one-legged stance despite being able to hold it for 10 seconds. Informed Consent/Education: Patient was instructed in purpose of PT consult and plan of care. She is greeable to proceed with established PT POC to achieve personal goals. Assessment: Symptoms are not consistent with BPPV. Strength symmetrically strong. Gait unremarkbale except for slowed velocity as patient felt a little hesitant and careful. Patient did not need to use an AD. Some impairment in balance demosntrated that are not consistent with patient's pre-admission level. Patient corroborates hitting her chin. Question symptoms of concussion syndrome that may be related to patient's fall considering continued report of fogginess, slowed basil, and new balance impairment. Patient presents with clinical signs and symptoms consistent with current/admitting diagnoses that have resulted to mobility limitations, gait instability, generalized weakness, and impairment of motor control as demonstrated by the following impairment level findings: 1. Impaired standing balance 2. Impaired activity tolerance 3. Fogginess 4. Mild lightheadedness Impairments are contributing to the following functional limitations: 1. Slowed basil 2. Increase completion time for mobility ADL performance 3. Increased fall risk 4. Inability to negotiate steps alone safely Patient is assessed as a 20841 moderate complexity based on the following: History: 55-year-old female with past medical history as indicated above Examination: Demonstrable impairment in strength, balance, and mobility level with underlying impairments and functional limitations as exhibited above as well as deficit score of 11% utilizing the [facility] Mobility Inpatient Short Form Presentation: Stable Decision Makin moderate complexity Goals: Goals X1 week 1. Independent gait on level surface with use of for at least 500 no assistive device feet without report of pain nor dyspnea 2. Independent stair negotiation while holding onto B rails for at least 12 steps without report of pain nor dyspnea 3. Independent with home exercise program 4. Normal dynamic standing balance/tolerance Plan of Care/Treatment Plan: 1-2x/day, 7 days/week x 1 week. Plan of care has been reviewed with the SHOOTER HELPER providing the service under Physical Therapy direction. Initiate Physical Therapy intervention for pain management as needed, strengthening, bed mobility, transfers, gait, stairs, balance training, and use of assistive device. DISCHARGE RECOMMENDATIONS: Home when medically cleared by hospitalist. No equipment needs at this time. May benefit from outpatient physical therapy services for balance retraining to facilitate return to community ambulation and recreational activities. TREATMENT CODE/TIME: 68478 x 20 minutes, 85058 x 15 minutes beginning at 10:35 AM. Thank you for the opportunity to participate in the care of this patient. Rashida Arzola PT, DPT, CLT [facility] [place], [place]
--- NOTE | 2021-01-24 12:55 | W.NEUROCONSU ---
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 Her neurological exam is normal and non-focal. MRI brain imaging appears normal to me. She has a single large T2 hyperintensity but not in a location expected for demyelination. However, given symptoms, agree with MRI brain w/ as further work-up. It's possible we missed a small stroke on MRI imaging, however her normal exam goes against this. But, also now with ? afib. Agree with tele and extended cardiac monitoring. Finally, she has had similar symptoms previously and symptoms could all be consistent with migraine. She was agreeable to trial of APAP now to see if that improved symptoms. Urged fluids. Discussed aspirin. She will think about it. Will continue to follow along. History of Present Illness History of Present Illness Chief Complaint: imbalance Narrative: Handedness: right. 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 She had brief feeling of vertigo and nausea that quickly resolved. However, she also noted difficulties with her balance as well as slowed speech. She had no weakness or numbness. She went to lay down but her symptoms did not improve and thus she presented to the emergency room. She otherwise notes a fairly unremarkable day preceding onset of her symptoms. She had gone on a 1 to 2 mile run in the morning. During the run, she tripped on a root. She was able to catch herself with her hands however did feel like she sustained a mild whiplash injury. In the afternoon, she went swimming for approximately 40 minutes. Unclear if she was dehydrated or not. The ER, her initial blood pressure was 126/71. Her heart rate was in the 80s to 90s. Initial EKG was complicated by artifact but concerning for atrial fibrillation. Repeat EKG later showed sinus rhythm. Dr. Clark recalls checking her pulse at home while she was more acutely not feeling well and noted a pulse in the 120s at one point. Laboratory work-up was significant for a sodium of 134, potassium 3.3, TSH 4.75 and a free T4 of 0.99. A UA was not performed. A1c was 4.9. Troponin x2 was negative. She notes a similar episodes of foggy head occurring several times per year for which she takes acetaminophen and her symptoms resolved. Last night, she experienced some fasciculations in her arms and legs that have since resolved. This morning, she woke up with a mild headache. She declined aspirin in the ER and upon admission. Work-up: -CTH (01/23/21): no acute findings. I reviewed these images personally and this is my personal interpretation. -CTA head/neck (01/23/21): no significant stenosis. I reviewed these images personally and this is my personal interpretation. -MRI brain w/o (01/24/21): no acute findings. Minimal chronic vascular changes with a single L posterior frontal hyperintensity measuring ~6mm. No evidence of prior hemorrhage. Consults Requesting physician: Kamlesh Christiansen Review of Systems All systems reviewed & are unremarkable except as noted in HPI and below PFSH Medical History Postmenopausal bleeding Surgical History History of delivery Family History (Updated 01/24/21 @ 13:30 by Natalee Sanchez MD) Father Cerebral amyloid angiopathy Social History Smoking/Tobacco Use Status: Never Smoking risk assessment performed?: Yes Alcohol Intake: current Drug use: Never Substance use type: does not use Visit Medication and Allergies Active Medications Generic Name Dose Route Start Last Admin Trade Name Freq PRN Reason Stop Dose Admin Acetaminophen 650 mg 01/24/21 01:19 Acetaminophen 325 Mg Tab PO Q4H PRN PRN Dimethicone/Zinc Oxide 0 gm 01/24/21 01:17 Mayi Protect Cream 142 Gm Tube TP PRN PRN IV Miscellaneous Supplies 1 each 01/23/21 22:30 Iv Access IV DIRECTED ALEXANDRA Iohexol 100 ml 01/23/21 23:30 01/23/21 23:30 Omnipaque 350 Mg/Ml 100 Ml Btl IJ 02/22/21 23:59 85 ml DIRECTED ALEXANDRA Administration Melatonin 3 - 6 mg 01/24/21 01:19 Melatonin 3 Mg Tab PO HS PRN PRN Sodium Chloride 0 ml 01/23/21 22:30 01/23/21 23:31 Normal Saline Flush 10 Ml Syr IVP 10 ml PRN PRN Administration Sodium Chloride 50 ml 01/23/21 23:45 01/23/21 23:31 Normal Saline - Diluent 50 Ml Vial IV 50 ml .FOR DI USE ALEXANDRA Administration Allergies penicillin V Allergy (Verified 09/12/20 15:26) Exam Narrative Exam Narrative: Physical Exam: Gen: Patient of apparent stated age, NAD Head and face: no facial or cranial abnormalities Neck: Supple, no meningismus, no occipital tenderness CV: + S1, S2, RRR, no murmur Abd: soft, nontender, nondistended Ext: No edema. No clubbing or cyanosis. No bony deformity. Neuro Exam: Language: fluency, naming, repetition, and comprehension intact; Mental Status: AAOx3, current events intact, fund of knowledge intact; Speech: no dysarthria Cranial nerves: Funduscopy: not performed CN II: visual lucio intact CN III, IV, : extraocular movements intact, no nystagmus, pupils symmetric and reactive to light CN V: face sensation intact to LT and PP CN VII: chronic/old L ptosis, unchanged CN VIII: hearing intact bilaterally CN IX, X: palate rises symmetrically CN XI: trapezius/SCM 5/5 bilaterally CN XII: protrudes tongue symmetrically Sensory: intact to LT, PP, vibration, and joint position in all extremities Motor: bulk and tone intact. Fine motor movements intact bilaterally. No pronator drift. Strength 5/5 throughout including the deltoids, biceps, triceps, wrist extensors, hip flexors, knee flexors, knee extensors, ankle flexors, and ankle extensors. Reflexes: 2+ at the biceps, triceps, brachioradialis, patella, and achilles tendons bilaterally; toes down going bilaterally; Coordination: FTN and HTS intact bilaterally Gait: not tested Results Last Vital Signs Temp 37 C 01/24/21 03:02 Pulse 69 01/24/21 03:56 Resp 18 01/24/21 03:02 BP 113/66 01/24/21 03:02 Pulse Ox 95 01/24/21 03:02 Labs Result diagrams: 01/23/21 22:55 01/23/21 22:55 Labs: Laboratory Results - last 24 hr 01/23/21 01/23/21 01/23/21 22:55 22:55 22:55 WBC 6.61 RBC 4.04 Hgb 12.9 Hct 36.5 MCV 90.3 MCH 31.9 MCHC 35.3 RDW 12.0 Plt Count 272 MPV 9.8 Immature Gran % 0.2 Neutrophils % 46.2 Lymphocytes % 40.4 Monocytes % 9.7 Eosinophils % 2.7 Basophils % 0.8 Nucleated RBC % 0 Absolute Neutrophils 3.06 Absolute Lymphocytes 2.67 Absolute Monocytes 0.64 Absolute Eosinophils 0.18 Absolute Basophils 0.05 PT INR APTT Sodium 134 L Potassium 3.3 L Chloride 99 Carbon Dioxide 27.1 Anion Gap 7.9 BUN 15 Creatinine 0.8 Estimated GFR/1.73 m2 >= 60.00 Glucose 136 H Calcium 9.0 Magnesium 2.0 Total Bilirubin 0.3 AST 15 ALT 18 Alkaline Phosphatase 75 Troponin I < 0.05 Total Protein 7.1 Albumin 3.9 TSH 4.75 H Free T4 0.99 COVID-19 Source SARS-CoV-2 (PCR) 01/23/21 01/24/21 01/24/21 22:55 02:20 02:20 WBC RBC Hgb Hct MCV MCH MCHC RDW Plt Count MPV Immature Gran % Neutrophils % Lymphocytes % Monocytes % Eosinophils % Basophils % Nucleated RBC % Absolute Neutrophils Absolute Lymphocytes Absolute Monocytes Absolute Eosinophils Absolute Basophils PT 9.9 INR 1.0 APTT 24.2 Sodium Potassium Chloride Carbon Dioxide Anion Gap BUN Creatinine Estimated GFR/1.73 m2 Glucose Calcium Magnesium Total Bilirubin AST ALT Alkaline Phosphatase Troponin I < 0.05 Total Protein Albumin TSH Free T4 COVID-19 Source Nasal/nares SARS-CoV-2 (PCR) Negative
[2021-01-24] MEDS: Normal Saline Flush 10 ML SYR IVP (12:59)
[2021-01-24] MEDS: Gadoterate meglumine 20 ML VIAL 11 ML IVP (12:59)
[2021-01-24 13:07] LABS: Hemoglobin A1C 4.9 % (<5.7)
[2021-01-24] MEDS: Acetaminophen 325 MG TAB 650 MG PO (13:19)
--- NOTE | 2021-01-24 13:47 | PGE_ITS ---
Date of Service Date of service: 01/24/21 Time of Service: 13:47 Assessment and Plan Assessment and plan (1) Brain fog: Status: Acute Assessment and plan: unclear as to the etiology of her dissociative state and transient gait imbalance. This may have been a vertebrobasilar TIA or stroke although her symptoms seem to have cleared. The acute onset and quick resolution makes MS unlikely despite her nonspecific white matter changes. The patient has a FH of cerebral amyloid angiopathy (father), strokes (father and mother), and dementia (mother) and Parkonsonism (mother). We will proceed w/ contrast enhanced MRI of the brain and obtain neurology consult this afternoon. Also I will have her get outpatient 30 day cardiac event recorder to evaluate for PAF. She is a potential set up for this given her athletic condition (runner, avid hiker) although she has no other risks such as HTN or NGHIA nor chronic lung disease. Her TSH was a little high however if she has PAF one would expect her to have a low TSH and high T4 if this is thyroid related. P.T. saw her for not only the vestibular evalution but also for her gait. She did very well w/independent ambulation aroung the med/surg floor w/out loss of her balance. The only little bit of problems notices was w/tandem walking w/ heel to toe and w/ single leg standing balance. (2) Imbalance: Status: Acute Assessment and plan: as above. 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 Given that she had an episode of fast pulse while at rest when her symptoms began last night would suggest an arrythmia.. I will have her get an outpatient 30 day cardiac event recorder. I have also ordered an echocardiogram for this afternoon. Subjective Subjective Patient reports: other Interval history since last seen: Patient was admitted last night after acute episode of a dissociative state associated w/ gait imbalance. See H&P for details. In summary this healthy 55 yr old female had been out for a run yesterday morning around 8:30 a.m. and stubbed her toe on a root and fell w/out loss of consciousness. She caught herself with her arms as she hit the ground grazing her chin but did not sustain any head injury. She returned home and felt fine until around 8 pm she was working on some notes for her office on the computer. She developed a dissociative feeling like she was floating having an out of body experience and she felt as if she were looking at things in the room in a time delay. She noted problems with her balance but denied any vertiginous symptoms. She denied any headaches to the ER but then told me that she had a feeling as if her head was floating. She had her check her pulse w/ a pulse oximeter and her HR was increased into the 120's while at rest. She noted difficulty walking due to feeling out of balance although she says that she did not veer into any objects. At this point she presented to the ER for evaluation. She denies any blurred or double vision and no focal weakness although she says that her hands felt tingly but no facial paresthesias and no change in her speech. Workup in the ER included routine labs, EKG's and CTA of head and neck. 1st EKG @ 22:37 was very irregular at rate of 70 to 111 with a lot of baseline artifact but the R-R intervals were very irregular suggestive of atrial fibrillation. 2nd EKG @ 23:35 was normal sinus rhythm at rate of 92 bpm. CTA head was unremarkable w/ no occlusions or stenosis or aneurysms of the [place] of [place]. CTA of the neck also was unremarkable. CMP was merely unremarkable except for non-fasting glucose of 136 and potassium of 3.3. CBC was normal. Troponin I was normal x 2 sets. TSH was mildly elevated at 4.75 with normal free T4. Covid-19 PCR was negative. She was admitted overnight for observation on telemetry for possible TIA. MRI of the brain w/out was performed and demonstrated no acute infarct but several white matter foci on the FLAIR and T2 weighted imaging for which a post- enhancement image was recommended. The radiologist included a diffferential of MS, inflammatory/infectious conditions, vasculitis, deep white matter injury, metastasis or chronic small vessel ischemic disease. I have spoken w/ Dr. Natalee Sanchez and we agreed that she ought to have an MRI of the brain w/ gadolinium enhancement. The patient is agreeable to the same. Exam Narrative Exam Narrative: Thin redheaded white female sitting in her chair, alert and oriented to person/place/time and circumstance HEENT is remarkable for wearing glasses. No facial asymmetry; normal facial mimetic muscle movement. Normal movement of her palate and toungue. normal EOMI. VF grossly intact to confrontation. I did not test visual acuity. she has no nystagmus. Neck: supple, nontender, normal ROM, normal strength, no JVD, no bruits Lungs: clear Heart: regular w/out murmur, rub or gallop Neuro: HEENT exam as above; normal motor and sensory over the face and both UE and both LE to light touch and noxious stimulation; normal ROM and strength in both UE, and both LE. Babinski is absent bilaterally. Other reflexes were not tested (I did not have a reflex hammer). Gait was not tested. Per P.T. her Hallpike-Nupur maneuver was negative for nystagmus or vertigo. Objective Last Vital Signs Temp 37 C 01/24/21 03:02 Pulse 69 01/24/21 03:56 Resp 18 01/24/21 03:02 BP 113/66 01/24/21 03:02 Pulse Ox 95 01/24/21 03:02 Laboratory Results - last 24 hr 01/23/21 01/23/21 01/23/21 02:25 22:55 22:55 WBC 6.61 RBC 4.04 Hgb 12.9 Hct 36.5 MCV 90.3 MCH 31.9 MCHC 35.3 RDW 12.0 Plt Count 272 MPV 9.8 Immature Gran % 0.2 Neutrophils % 46.2 Lymphocytes % 40.4 Monocytes % 9.7 Eosinophils % 2.7 Basophils % 0.8 Nucleated RBC % 0 Absolute Neutrophils 3.06 Absolute Lymphocytes 2.67 Absolute Monocytes 0.64 Absolute Eosinophils 0.18 Absolute Basophils 0.05 PT INR APTT Sodium 134 L Potassium 3.3 L Chloride 99 Carbon Dioxide 27.1 Anion Gap 7.9 BUN 15 Creatinine 0.8 Estimated GFR/1.73 m2 >= 60.00 Glucose 136 H Hemoglobin A1c 4.9 Calcium 9.0 Magnesium 2.0 Total Bilirubin 0.3 AST 15 ALT 18 Alkaline Phosphatase 75 Troponin I Total Protein 7.1 Albumin 3.9 TSH Free T4 COVID-19 Source SARS-CoV-2 (PCR) 01/23/21 01/23/21 01/24/21 22:55 22:55 02:20 WBC RBC Hgb Hct MCV MCH MCHC RDW Plt Count MPV Immature Gran % Neutrophils % Lymphocytes % Monocytes % Eosinophils % Basophils % Nucleated RBC % Absolute Neutrophils Absolute Lymphocytes Absolute Monocytes Absolute Eosinophils Absolute Basophils PT 9.9 INR 1.0 APTT 24.2 Sodium Potassium Chloride Carbon Dioxide Anion Gap BUN Creatinine Estimated GFR/1.73 m2 Glucose Hemoglobin A1c Calcium Magnesium Total Bilirubin AST ALT Alkaline Phosphatase Troponin I < 0.05 < 0.05 Total Protein Albumin TSH 4.75 H Free T4 0.99 COVID-19 Source SARS-CoV-2 (PCR) 01/24/21 02:20 WBC RBC Hgb Hct MCV MCH MCHC RDW Plt Count MPV Immature Gran % Neutrophils % Lymphocytes % Monocytes % Eosinophils % Basophils % Nucleated RBC % Absolute Neutrophils Absolute Lymphocytes Absolute Monocytes Absolute Eosinophils Absolute Basophils PT INR APTT Sodium Potassium Chloride Carbon Dioxide Anion Gap BUN Creatinine Estimated GFR/1.73 m2 Glucose Hemoglobin A1c Calcium Magnesium Total Bilirubin AST ALT Alkaline Phosphatase Troponin I Total Protein Albumin TSH Free T4 COVID-19 Source Nasal/nares SARS-CoV-2 (PCR) Negative
[2021-01-24] MEDS: Acetaminophen 325 MG TAB PO (14:52)
--- NOTE | 2021-01-24 15:52 | CHAPLAIN ---
I had a brief visit with Estrella this morning. She is waiting for more information from medical team, and expects her to be to visit later today.
--- NOTE | 2021-01-24 16:40 | PDOC.CMPRO ---
- If Service Date Differs Date of service: 01/24/21 Time of Service: 16:40 Care Management Progress Note S/O: Estrella was sitting up in the chair in her room when CM met with her. She has had an MRI this morning, worked with PT, and met with Neurology. She reported that as long as her workup is negative, she will likely return home later this evening. NIC spoke to the provider shortly after visiting with Estrella, who stated that she will be discharged this afternoon. 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 Her will drive her home via private vehicle. She did not have any further questions or concerns. A: Estrella is a 55 year old female admitted to [facility] on 01/24/21 for ataxia. P: Estrella will be discharged home today with no new services. Her will pick her up via private vehicle when ready. She will follow up with her PCP and discharge plan of care. CM will continue to follow.
--- NOTE | 2021-01-24 16:53 | W.PM.DS.N ---
Date of service: 01/24/21 Time of Service: 16:53 DS: Diagnosis Discharge Diagnosis (1) Brain fog: Status: Resolved Asessment and Plan: believed to have been atypical migraine. Negative MRI w/ and w/out for any CVA or aneurysm or mass. She has several nonspecific white matter foci seen on FLAIR and T2 weighted images largest being 7 mm in left parietal lobe. None enhanced w/ gadolineum contrast. Patient symptoms resolved after Tyelenol 1000 mg. (2) Imbalance: Status: Resolved Asessment and Plan: gait imbalance resolved. felt to be related to brain fog, possible atypical migraine. (3) Ataxia: Status: Resolved (4) Atrial fibrillation: Status: Suspected Asessment and Plan: symptoms and 1st EKG suspicious for PAF. repeat EKG and telemetry overnight did not show any reoccurrence. She is to have 30 day cardiac event recorder. Echo was done but not read yet. Discharge Plan Disposition Patient Disposition: HOME Condition: Stable Discharge Details Reason For Visit: ATAXIA Admit Date/Time: 01/24/21 01:17 Admit Provider: Srini Fernandez Attending Provider: Srini Fernandez Primary Care Provider: Mo Beasley Hospital Course Hospital Course: Patient presented to the hospital yesterday evening after acute onset of tachycardia and a feeling of dissociative out of body experience and gait imbalance. Please see my progress note from today along w/ 's H&P and the ER notes along w/ the neurologist's notes by Dr. Sanchez. Workup in the ER included routine labs (CBC, CMP, TSH/T4, SARS-CoV2 [employer]ING PCR test, troponin I). CBC, CMP, TSH/T4 and troponins were all unremarkable except mildly low potassium 3.3, mildly elevated TSH 4.75 w/ normal T4 0.99, SARS-COV2 was negative. EKG initially demonstrated a lot of baseline artifact but showed an irrregular tachycardia at 70-111 suspicious for a-fib vs artifact. Repeat EKG was clearly sinus rhythm w/out ischemic changes. CTA of head and neck were unremarkable. Specifically they showed no focal stenosis, no aneurysm and no intracranial bleed or CVA or masses. Patient was admitted overnight for observation on telemetry. She had no arrhythmias overnight and she had an MRI of brain w/out that showed no CVA but non-specific Several white matter foci on the FLAIR and T2 weighted images. Based on this it was recommended that she have a post contrast enhanced MRI. This was done and demonstrated No suspicious enhancement is identified. Per the radiologists interpretation the differential considerations for the white matter lesions seen on the MRI of the brain from earlier in the day include demyelinating processes such as MS, vasculitis, chronic microvascular ischemic disease, white matter injury or inflammatory process. A neurology consultation was obtained w/ Dr. Natalee Sanchez. See her note for details. In summary she feels that the patient suffered an aypical migraine. Her symptoms were already improving but but resolved w/ 1000 mg of acetaminophen. Because of her symptoms of tachycardia (documented by her who put a pulse oximeter on her when she first developed these symptoms and also because of the 1st EKG that suggested atrial fibrillation, it was recommended that she have a prolonged cardiac event recorder. She was set up for a 30 day event recorder at the time of discharge. An echocardiogram was done in the afternoon before she was discharged but has not been read yet. No ASA prophylaxis was recommended by the neurologist. Lipid profile was not done as this had just been done as outpatient in August 2020 and was reasonably controlled. An hemoglobin A1c was done and was normal at 4.9%. Patient is to follow up w/ neurology as needed. Patient to follow up w/ her PCP on her cardiac event recorder and echocardiogram results. Home Meds and New Rx's Prescriptions: No Action cholecalciferol (vitamin D3) 1,000 unit capsule 1,000 unit PO DAILY RF: 0 Discharge Instructions Instructions: Migraine Headache (GEN) Stand Alone Forms: Nursing Discharge Form Activity:: Activity as Tolerated Equipment/Supplies:: No Equipment Needed Diet:: Normal Diet Discharge Orders Discharge Orders: Discharge Order (Routine); Ordered 01/24/21 Ordered By: Kamlesh Christiansen Other Ambulatory Orders: Cardiac Event Recorder (Routine) Timeframe: 1 Day Facility: [facility] - Location: Respiratory Therapy Ordered By: Kamlesh Christiansen Discharge Data Discharge Date/Time-TO BE ENTERED AT DEPARTURE: 01/24/21 17:21 DS: Summary Time Spent with Patient providing and/or coordinating discharge services: Less than 30 minutes Status at Discharge Functional status at discharge: independent ambulation Overall status at discharge: patient is back to baseline Mental Status: mental status grossly normal Speech and Movement: speech and movement normal Mood: congruent mood Affect: normal affect Exam Narrative Exam Narrative: Thin redheaded white female sitting in her chair, alert and oriented to person/place/time and circumstance HEENT is remarkable for wearing glasses. No facial asymmetry; normal facial mimetic muscle movement. Normal movement of her palate and toungue. normal EOMI. VF grossly intact to confrontation. I did not test visual acuity. she has no nystagmus. Neck: supple, nontender, normal ROM, normal strength, no JVD, no bruits Lungs: clear Heart: regular w/out murmur, rub or gallop Neuro: HEENT exam as above; normal motor and sensory over the face and both UE and both LE to light touch and noxious stimulation; normal ROM and strength in both UE, and both LE. Babinski is absent bilaterally. Other reflexes were not tested (I did not have a reflex hammer). Gait was not tested. Per P.T. her Hallpike-Hyrum maneuver was negative for nystagmus or vertigo. Psych Mental Status: mental status grossly normal Speech and Movement: speech and movement normal Mood: congruent mood Affect: normal affect DS: Data Vitals/I&O Vitals and I&O: Vital Signs Temperature 36.7 C 01/24/21 16:22 Temperature Source Tympanic 01/24/21 16:22 Pulse 52 L 01/24/21 16:22 Pulse Rhythm Regular 01/24/21 07:50 Pulse 79 01/24/21 02:31 Respiratory Rate 16 01/24/21 16:22 Respiratory Effort 01/24/21 07:50 Respiratory Depth Normal 01/24/21 07:50 Respiratory Pattern Normal 01/24/21 07:50 Blood Pressure 119/72 01/24/21 16:22 Blood Pressure Mean 58 01/24/21 02:30 Blood Pressure Position Supine 01/23/21 22:20 Pulse Oximetry 98 01/24/21 16:22 Oxygen Delivery Method Room Air 01/24/21 16:22 Oxygen Flow Rate 0 01/24/21 16:22 Pain Level 0 01/24/21 16:22 Intake & Output 01/23/21 01/24/21 01/24/21 23:59 11:59 23:59 Intake Total 1210 / 1450 240 / 1450 Output Total 1900 / 1900 Balance 1210 / -450 -1660 / -450 Weight 63.3 kg 56.699 kg Intake: IV 1010 / 1010 Oral 200 / 440 240 / 440 Output: Urine 1900 / 1900 Other: Urine Color Yellow Urine Appearance Clear Clear Urine Odor Normal Voiding Methods Toilet Data Completed and Pending Labs on day of discharge: Labs from last 24 hours 01/24/21 01/24/21 01/23/21 02:20 02:20 22:55 WBC RBC Hgb Hct MCV MCH MCHC RDW Plt Count MPV Immature Gran % Neutrophils % Lymphocytes % Monocytes % Eosinophils % Basophils % Nucleated RBC % Absolute Neutrophils Absolute Lymphocytes Absolute Monocytes Absolute Eosinophils Absolute Basophils PT 9.9 INR 1.0 APTT 24.2 Sodium Potassium Chloride Carbon Dioxide Anion Gap BUN Creatinine Estimated GFR/1.73 m2 Glucose Hemoglobin A1c Calcium Magnesium Total Bilirubin AST ALT Alkaline Phosphatase Troponin I < 0.05 Total Protein Albumin TSH Free T4 COVID-19 Source Nasal/nares SARS-CoV-2 (PCR) Negative 01/23/21 01/23/21 01/23/21 22:55 22:55 22:55 WBC 6.61 RBC 4.04 Hgb 12.9 Hct 36.5 MCV 90.3 MCH 31.9 MCHC 35.3 RDW 12.0 Plt Count 272 MPV 9.8 Immature Gran % 0.2 Neutrophils % 46.2 Lymphocytes % 40.4 Monocytes % 9.7 Eosinophils % 2.7 Basophils % 0.8 Nucleated RBC % 0 Absolute Neutrophils 3.06 Absolute Lymphocytes 2.67 Absolute Monocytes 0.64 Absolute Eosinophils 0.18 Absolute Basophils 0.05 PT INR APTT Sodium 134 L Potassium 3.3 L Chloride 99 Carbon Dioxide 27.1 Anion Gap 7.9 BUN 15 Creatinine 0.8 Estimated GFR/1.73 m2 >= 60.00 Glucose 136 H Hemoglobin A1c Calcium 9.0 Magnesium 2.0 Total Bilirubin 0.3 AST 15 ALT 18 Alkaline Phosphatase 75 Troponin I < 0.05 Total Protein 7.1 Albumin 3.9 TSH 4.75 H Free T4 0.99 COVID-19 Source SARS-CoV-2 (PCR) 01/23/21 02:25 WBC RBC Hgb Hct MCV MCH MCHC RDW Plt Count MPV Immature Gran % Neutrophils % Lymphocytes % Monocytes % Eosinophils % Basophils % Nucleated RBC % Absolute Neutrophils Absolute Lymphocytes Absolute Monocytes Absolute Eosinophils Absolute Basophils PT INR APTT Sodium Potassium Chloride Carbon Dioxide Anion Gap BUN Creatinine Estimated GFR/1.73 m2 Glucose Hemoglobin A1c 4.9 Calcium Magnesium Total Bilirubin AST ALT Alkaline Phosphatase Troponin I Total Protein Albumin TSH Free T4 COVID-19 Source SARS-CoV-2 (PCR) [facility] Medical History Postmenopausal bleeding Surgical History History of delivery Family History (Updated 01/24/21 @ 13:30 by Natalee Sanchez MD) Father Cerebral amyloid angiopathy Social History Smoking/Tobacco Use Status: Never Smoking risk assessment performed?: Yes Alcohol Intake: current Drug use: Never Substance use type: does not use
--- NOTE | 2021-01-24 18:50 | INDS_ITS ---
Date of service: 01/27/21 PT Notes Visit Reasons: Ataxia Physical Therapy Inpatient Discharge Summary Date: 01/24/2021 Dates of service: 01/24/2021 only This is a clinical summary of care provided for the duration of dates listed above. No charge was made in the completion of this documentation. Referring Doctor: Kamlesh Christiansen MD PT Orders: PT CONSULT: Fall safety assessment. Evaluate and treat for vertigo, gait ataxia Precautions: Fall. Standard. Activity as tolerated. Patient Profile/Admitting Diagnosis: Estrella is a 55-year female who presented to the ED 01/23/2021 with report of unsteadiness and feelings of being unwell and dissociated, slowing of speech, and difficulty with ambulation. She also demonstrated terms of vertigo with a few episodes of nausea and being off balance. Per chart patient went out for a run yesterday morning and landed on her outstretched hands and hit her chin. Patient is diagnosed with ataxia with a question of atypical labyrinthitis. Head and neck CTA are normal. MRI did not show any evidence of acute infarct. 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 Runs 2 miles regularly. Independent with all aspects of ADLs. Does not use any assistive device nor any adaptive equipment. Equipment Owned/DME: None Subjective: NT. See most recent SALES PROJECT MANAGER notes. Eing a little slow. Objective: General Observation: NT. See most recent SALES PROJECT MANAGER notes. Mental Status: NT. See most recent SALES PROJECT MANAGER notes. Pain: NT. See most recent SALES PROJECT MANAGER notes. ROM: Right Upper Extremity: Shoulder Flexion WFL. Shoulder abduction WFL. Shoulder ER/IR WFL. Elbow flexion WFL. Forearm pronation/supination WFL. Wrist flexion WFL. Opening and closing of hand WFL. Left Upper Extremity: Shoulder Flexion WFL. Shoulder abduction WFL. Shoulder ER/IR WFL. Elbow flexion WFL. Forearm pronation/supination WFL. Wrist flexion WFL. Opening and closing of hand WFL. Right Lower Extremity: Hip flexion WFL. Hip abduction WFL. Hip ER/IR WFL. Knee flexion WFL. Knee extension. Ankle dorsiflexion/eversion WFL. Ankle plantarflexion/inversion WFL. Left Lower Extremity: Hip flexion WFL. Hip abduction WFL. Hip ER/IR WFL. Knee flexion WFL. Knee extension. Ankle dorsiflexion WFL. Ankle plantarflexion WFL. Strength: Right Upper Extremity: Shoulder flexors 5/5. Shoulder abductors 5/5. Shoulder ER 5/5. Shoulder IR 5/5. Forearm pronators 5/5. Forearm supinators 5/5. Elbow flexors 5/5. Elbow extensors 5/5. Bonbon Cream Warmer strong. Left Upper Extremity: Shoulder flexors 5/5. Shoulder abductors 5/5. Shoulder ER 5/5/ Shoulder IR 5/5. Forearm pronators 5/5. Forearm supinators 5/5. Elbow flexors 5/5. Elbow extensors 5/5. Bonbon Cream Warmer strong. Right Lower Extremity: Hip flexors 5/5. Hip abductors 5/5. Hip external rotators 5/5. Hip internal rotators 5/5. Knee flexors 5/5. Knee extensors 5/5. Ankle dorsiflexors/evertors 5/5. Ankle plantarflexors/invertors 5/5. Left Lower Extremity: Hip flexors 5/5. Hip abductors 5/5. Hip external rotators 5/5. HIp internal rotators 5/5. Knee flexors 5/5. Knee extensors 5/5. Ankle dorsiflexors/evertors 5/5. Ankle plantarflexors/invertors 5/5. Bed Mobility/Transfers: Rolling independent Supine to sit independent Sit to supine independent Sit to stand independent Stand to sit independent Bed to chair independent Chair to bed independent Gait: Guided patient through level surface ambulation of about 300 feet without an assistive device with full weight bearing requiring only supervision with no gait abnormality seen except for what patient considers a slower walking speed than she typically does pre-admission. No exacerbation of fogginess. No increase in headache. Balance: Static Sitting: Normal Dynamic Sitting: Normal Static Standing: Normal Dynamic Standing: Good Testing for Vertigo: No report of fullness in B ears. No report of instability in the neck. No pain in the anterior nor posterior neck areas and therefore did not need to perform Alar Ligament Test nor Sharp-Sarah test. No resting nystagmus seen. Nupur-Hallpike maneuver was done for R and L but patient did not demonstrate nystagmus nor did she report symptom exacerbation of fogginess/lightheadedness. Romberg Test: Produced very minimal swaying during the first few seconds but disappeared toward the middle and end of the test duration. 4-Stage Balance Test: Able to maintain feet together for 10 seconds and with semi-tandem but was mildly shaky with the latter. Was moderately shaky with the full tandem stance and with the one-legged stance despite being able to hold it for 10 seconds. Assessment: Symptoms are not consistent with BPPV. Symmetrically strong. Gait unremarkbale except for slowed velocity as patient felt a little hesitant and careful. Patient did not need to use an AD. Some impairment in balance demonstrated that are not consistent with patient's pre-admission level. Patient corroborates hitting her chin. Question symptoms of concussion syndrome that may be related to patient's fall considering continued report of fogginess, slowed basil, and new balance impairment. Patient continues to present with clinical signs and symptoms consistent with current/admitting diagnoses that have resulted to mobility limitations, gait instability, generalized weakness, and impairment of motor control as demonstrated by the following impairment level findings: 1. Impaired standing balance 2. Impaired activity tolerance 3. Fogginess 4. Mild lightheadedness Impairments are continuing to contribute to the following functional limitations: 1. Slowed basil 2. Increase completion time for mobility ADL performance Goals: Goals X1 week 1. Independent gait on level surface with use of for at least 500 no assistive device feet without report of pain nor dyspnea NOT MET 2. Independent stair negotiation while holding onto B rails for at least 12 steps without report of pain nor dyspnea NOT MET 3. Independent with home exercise program NOT MET 4. Normal dynamic standing balance/tolerance NOT MET DISCHARGE RECOMMENDATIONS: Home when medically cleared by hospitalist. No equipment needs at this time. May benefit from outpatient physical therapy services for balance retraining to facilitate return to community ambulation and recreational activities. TREATMENT CODE/TIME: LA Thank you for the opportunity to participate in the care of this patient. Rashida Arzola PT, DPT, CLT [facility] [place], [place]
--- NOTE | 2021-02-23 12:02 | W.CARDEVENT ---
Date of service: 02/23/21 Time of Service: 12:02 Cardiac Event Recorder Referring Provider:: Darnell Indications:: ataxia Cardiac Event Note: This is a 30-day event monitor order for indication of ataxia. ?The patient was monitored for total 19 days and during that time the average heart rate was 52 bpm. ?There was one automatically detected episode of sinus tachycardia with PVCs. ?There were 3 manually detected episodes associated with flutter and lightheadedness. These were associated with sinus bradycardia and occasional PACs. ?There were no episodes of ventricular tachycardia nor any episodes of supraventricular tachycardia. ?There were no episodes of atrial fibrillation, no pauses greater than 3 seconds and no evidence of high degree heart block.
== END 2021-01-24 17:21 | disposition home or self-care (01) ==
LOC: ER 01-24 01:29 → MS 01-24 02:46
PROVIDERS: Admitting Provider General Practice; Emergency Provider Physician Assistant; PCP Physician Assistant Medical; Visit Provider General Practice
DX: R27.0 Ataxia, unspecified (principal); R41.82 Altered mental status, unspecified; R93.0 Abnormal findings on diagnostic imaging of skull and head, not elsewhere classified; R00.0 Tachycardia, unspecified; R94.31 Abnormal electrocardiogram [ECG] [EKG]
CPT/HCPCS: 36415; 70496; 70498; 70552; 80053; 87635; 93005; 93270; 96360; 96361; 97161; 97530; 99285; 70551; 83036; 83735; 84439; 84443; 84484; 85025; 85610; 85730; 93010; 93306; 99236; G0378; J3490

== ENCOUNTER 2021-03-29 18:59 | Outpatient (REF) | payer OTHER, SELFPAY ==
[2021-03-31 15:39] LABS: COVID-19 RT-PCR UVMMC Result Negative (Negative)
== END 2021-03-29 19:00 | disposition home or self-care (01) ==
LOC: NCHCN 18:59
PROVIDERS: PCP Physician Assistant Medical; Visit Provider Physician Assistant Medical
DX: Z20.822 Contact with and (suspected) exposure to COVID-19 (principal)
CPT/HCPCS: U0003

== ENCOUNTER 2021-09-20 00:46 | Outpatient (CLI) | payer OTHER, SELFPAY ==
--- NOTE | 2021-09-20 | DI.MAMMO_ITS ---
Exam(s) MAMMO SCREENING EXAM: MAMMO SCREENING CLINICAL HISTORY: SCREENING,PREVENTIVE [facility],Z00.00 TECHNIQUE: Mammograms were interpreted according to the usual protocol including computer analysis w [employer] CAD system, tomosynthesis and C-view imaging. COMPARISON: 2012 through 2019 FINDINGS: The breasts are composed of heterogeneously dense fibroglandular densities, Breast Density category C . No suspicious masses or suspicious microcalcifications are seen. Circumscribed nodule medial posteri or left breast, decreasing when compared with previous exams. Scattered benign-appearing calcificati ons bilaterally. No skin thickening or abnormal axillary lymph nodes are seen. There has been no significant change from prior exams. IMPRESSION: BI-RADS Cat 2 - Benign Findings Yearly screening mammography is recommended. Breast Density Category C, heterogeneously Dense. The mammogram demonstrates the patient's breast tissue is dense. Dense breast tissue is very common a nd is not abnormal but dense breast tissue can make it harder to find cancer on a mammogram. Also, de nse breast tissue may increase breast cancer risk. This information about the result of the mammogram report was provided to the patient to raise their awareness. Use this report when you speak with the patient about their risks for breast cancer, which includes their family history. At that time, you may recommend additional screening tests (Ultrasound or MRI) as they might be useful based on their r isk. A negative radiographic report should not delay biopsy if a dominant or clinically suspicious mass is present. Up to ten percent of cancers are not identified on mammography. A negative report may reinforce clinical impression. Adenosis and dense breasts may obscure an underlying neoplasm. False positive reports average 6 to 10%.
== END 2021-09-20 01:06 ==
PROVIDERS: PCP Physician Assistant Medical; Visit Provider Physician Assistant Medical
DX: Z12.31 Encounter for screening mammogram for malignant neoplasm of breast (principal); R92.8 Other abnormal and inconclusive findings on diagnostic imaging of breast
CPT/HCPCS: 77063; 77067

== ENCOUNTER 2022-09-19 15:20 | Outpatient (REF) | payer BC, SELFPAY ==
[2022-09-19 15:58] LABS: Anion Gap 6.5 mmol/L (3-11); BUN 16 mg/dL (7-18); CO2 28.5 mmol/L (21.0-32.0); CREATININE 0.8 mg/dL (0.55-1.02); Calcium 9.6 mg/dL (8.5-10.1); Chloride 104 mmol/L (98-107); Estimated GFR 85.89 (mL/min/1.73m2); Glucose 88 mg/dL (74-106); Potassium 4.1 mmol/L (3.5-5.1); Sodium 139 mmol/L (136-145); TSH (W/Ref FT4) 4.09 uIU/mL (0.36-3.74)
[2022-09-19 16:19] LABS: FREE T4 0.91 ng/dL (0.76-1.46)
== END 2022-09-19 15:21 | disposition home or self-care (01) ==
LOC: NCHCN 15:20
PROVIDERS: PCP Physician Assistant Medical; Visit Provider Physician Assistant Medical
DX: E87.6 Hypokalemia (principal); R94.6 Abnormal results of thyroid function studies
CPT/HCPCS: 80048; 84439; 84443

== ENCOUNTER 2022-09-25 11:26 | Outpatient (REF) | payer BC, SELFPAY ==
[2022-09-27 11:50] LABS: COVID-19 RT-PCR UVMMC Result Negative (Negative)
== END 2022-09-25 11:27 | disposition home or self-care (01) ==
LOC: NCHCN 11:26
PROVIDERS: PCP Physician Assistant Medical; Visit Provider Physician Assistant Medical
DX: Z20.822 Contact with and (suspected) exposure to COVID-19 (principal)
CPT/HCPCS: U0003

== ENCOUNTER 2022-09-26 02:12 | Outpatient (CLI) | payer BC, SELFPAY ==
--- NOTE | 2022-09-26 08:06 | DI.MAMMO_ITS ---
Exam(s) MAMMO SCREENING EXAM: MAMMO SCREENING CLINICAL HISTORY: SCREENING MAMMO Z12.31 TECHNIQUE: Bilateral full field digital CC and MLO mammographic images were obtained with 3D tomosyn thesis and utilizing computer aided detection (CAD). COMPARISON: Available for comparison. FINDINGS: Masses/Architectural Distortion: The nodule in the posterior medial left breast on the CC view appear s stable. No suspicious nodules or areas of architectural distortion are seen. Microcalcifications: No suspicious pleomorphic-type are seen. Skin Thickening/Nipple Retraction: None. IMPRESSION: 1. No significant interval change with no specific features of malignancy noted. 2. Unless there is more urgent need, screening mammography is recommended, as per [place] [employer] guidelines. BI-RADS Category 2 - Benign Findings Breast Density - Category C - Heterogeneously dense Breast density category C or D implies that the patient has dense breast tissue. Dense breast tissue is very common and is not abnormal but dense breast tissue can make it harder to find cancer on a ma mmogram. Also, dense breast tissue may increase their breast cancer risk. This information about the result of the mammogram report was provided to the patient to raise their awareness. Use this report when you speak with the patient about their risks for breast cancer, which includes their family hist ory. At that time, you may recommend for more screening tests (Ultrasound or MRI) as they might be us eful based on their risk. A negative radiographic report should not delay biopsy if a dominant or clinically suspicious mass is present. Up to ten percent of cancers are not identified on mammography. A negative report may reinforce clinical impression. Adenosis and dense breasts may obscure an underlying neoplasm. False positive reports average 6 to 10%. Patient will receive a letter notifying them of these results.
== END 2022-09-26 02:32 ==
LOC: DI 02:17
PROVIDERS: PCP Physician Assistant Medical; Visit Provider Physician Assistant Medical
DX: Z12.31 Encounter for screening mammogram for malignant neoplasm of breast (principal); R92.8 Other abnormal and inconclusive findings on diagnostic imaging of breast
CPT/HCPCS: 77063; 77067

== ENCOUNTER 2022-11-02 19:32 | Outpatient (REF) | payer BC, SELFPAY | END 2022-11-02 19:33 | disposition home or self-care (01) | LOC: NCHCN 19:32 | PROVIDERS: PCP Physician Assistant Medical; Visit Provider Physician Assistant Medical | DX: R94.6 Abnormal results of thyroid function studies (principal) | CPT/HCPCS: 84443 ==

== ENCOUNTER → 2023-11-04 02:43 | Outpatient (CLI) | payer BC, SELFPAY ==
--- NOTE | 2023-11-04 | DI.MAMMO_ITS ---
Exam(s) MAMMO SCREENING EXAM: MAMMO SCREENING CLINICAL HISTORY: Screening, Z12.31. TECHNIQUE: Bilateral full field digital CC and MLO mammographic images were obtained with 3D tomosyn thesis and utilizing computer aided detection (CAD). COMPARISON: Prior mammograms were reviewed. FINDINGS: The fibroglandular tissue pattern is again noted be moderately dense. There are no new significant right breast findings. In the left breast there is a new oval well-defined noncalcified nodule seen laterally, 5 cm in from the nipple and measuring 6x5 mm. Further imaging required. Posteriorly in the left breast there is a round nodular density evident which is unchanged from 2018 and therefore benign. There is scattered benign-appearing microcalcifications in both breasts again noted. There are no ne w malignant-appearing microcalcification groups. There is no significant architectural distortion nor skin thickening-retraction. IMPRESSION: 1. No radiographic evidence of malignancy in the right breast. 2. New left breast nodule located laterally. Spot compression view and ultrasound recommended. BI-RADS Category 0 - Assessment Incomplete: Need additional imaging evaluation Breast Density - Category C - Heterogeneously dense Breast density Category C or D implies that the patient has dense breast tissue. Dense breast tissue can make it harder to find cancer on a mammogram. Dense breast tissue is also associated with an incr eased risk of breast cancer. This information about the result of the mammogram report was provided to the patient to raise their awareness. Use this report when you speak with the patient about their risks for breast cancer, which includes their family history. At that time, you may recommend additional screening tests (Ultrasoun d or MRI) as these tests may add significant information. A negative radiographic report should not delay biopsy if a dominant or clinically suspicious mass is present. Up to ten percent of cancers are not identified on mammography. A negative report may reinforce clinical impression. Adenosis and dense breasts may obscure an underlying neoplasm. False positive reports average 6 to 10%. Patient will receive a letter notifying them of these results.
== END ==
PROVIDERS: PCP Physician Assistant Medical; Visit Provider Physician Assistant Medical
DX: Z12.31 Encounter for screening mammogram for malignant neoplasm of breast (principal)
CPT/HCPCS: 77063; 77067

== ENCOUNTER → 2023-11-13 01:37 | Outpatient (CLI) | payer BC, SELFPAY ==
--- NOTE | 2023-11-13 | DI.US_ITS ---
Exam(s) MG MAMMO SCREEN CALL BACK UNI US BREAST LT LIMITED EXAM: MG MAMMO SCREEN CALL BACK UNI CLINICAL HISTORY: R92.8 abn breast imaging, left breast nodule located laterally. TECHNIQUE: Craniocaudal and mediolateral oblique spot compression digital Mammography views of the l eft breast with Tomosynthesis and left breast ultrasound. COMPARISON: MG Screening Bilat Mammo from 11/17/2014 US LEFT BREAST ULTRASOUND {[id number]} from 11/24/2014 MG Screening Bilat Mammo from 06/11/2016 MG MG mammo screening from 05/14/2018 MG MG MAMMO SCREENING from 11/09/2019 MG MG MAMMO SCREENING from 09/20/2021 MG MG MAMMO SCREENING from 09/26/2022 MG MG MAMMO SCREENING from 11/04/2023 US US BREAST LT LIMITED from 11/13/2023 FINDINGS: Mammography/Tomosynthesis: Masses/Architectural Distortion: Persistent circumscribed nodule in the left lateral breast at level of nipple. Microcalcifictions: No suspicious pleomorphic-type are seen. Skin Thickening/Nipple Retraction: None. Left breast US: Echotexture: Normal appearance of the glandular tissue. Shadowing: No suspicious foci. Cyst: 6 millimeter simple cyst 3 o'clock position of the lateral breast 3 cm from the nipple. Additi onal cysts were noted at the 2 and 3 o'clock positions closer to the nipple. Solid lesions: None seen. Ductal dilation: None. IMPRESSION: 1. No evidence of malignancy is noted. 2. Unless there is more urgent need, follow-up screening mammography is recommended, as per [employer] guidelines. 3. The findings were discussed with the patient on the date of the examination. BI-RADS Category 2 - Benign Findings Breast Density - Category C - Heterogeneously dense A mammogram that demonstrates density of C or D indicates the patient's breast tissue is dense. Dense breast tissue is very common and is not abnormal, but dense breast tissue can make it harder to find cancer on a mammogram. Also, dense breast tissue may increase their breast cancer risk. This informa tion about the result of the mammogram report was provided to the patient to raise their awareness. U se this report when you speak with the patient about their risks for breast cancer, which includes th eir family history. At that time, you may recommend for more screening tests (Ultrasound or MRI) as t hey might be useful based on their risk. A negative radiographic report should not delay biopsy if a dominant or clinically suspicious mass is present. Up to ten percent of cancers are not identified on mammography. A negative report may reinforce clinical impression. Adenosis and dense breasts may obscure an underlying neoplasm. False positive reports average 6 to 10%. Patient will receive a letter notifying them of these results.
== END ==
PROVIDERS: PCP Physician Assistant Medical; Visit Provider Physician Assistant Medical
DX: Z12.31 Encounter for screening mammogram for malignant neoplasm of breast (principal); R92.8 Other abnormal and inconclusive findings on diagnostic imaging of breast; N60.12 Diffuse cystic mastopathy of left breast; R92.333 Mammographic heterogeneous density, bilateral breasts
CPT/HCPCS: 76642; 77063; 77067

== ENCOUNTER 2024-11-16 09:49 | Day surgery (SDC) | payer OTHER, SELFPAY ==
--- NOTE | 2024-11-15 10:01 | W.PM.DSUDISC ---
Date of service: 11/16/24 Discharge Plan Disposition Patient Disposition: Home Condition: Good Discharge Details Reason For Visit: screening colonoscopy Attending Provider: Ab Pickens Primary Care Provider: Mo Beasley Home Meds and New Rx's Prescriptions: Continued cholecalciferol (vitamin D3) 1,000 unit capsule 1,000 unit PO DAILY estradiol [Estrace] 0.01 % (0.1 mg/gram) cream 1 appful vaginal DAILY Rx Instructions: for 14 days Discharge Instructions Additional Instructions: Estrella, it was a pleasure to finally meet you in person. I hope you are comfortable during the colonoscopy and feel great through the rest of today. Everything went very smoothly. Your prep was excellent and we could see everything fine. I did notice just a few diverticula within the sigmoid segment, but I do not think I would ever even really consider this diverticulosis. And with regards to hemorrhoid disease, I would consider this really quite mild and I suspect you do fine with [id number] treatments. Otherwise, your colonoscopy is totally negative with regards to polyps, tumors, or any other major worrisome pathology. If you need anything, or have any questions at all, please feel free to call at any point. Otherwise, with a negative colonoscopy today, and what I would consider minimal risk factors overall, I would recommend another screening colonoscopy in 10 years, or similar screening test. 1. If tolerated, consume a soft, low fiber diet for 1-2 days. 2[address] Do not drive, drink alcohol, operate machinery, make critical decisions, or do activities that require coordination or balance for 24 hours. 3. Because air was put into your colon during the procedure, expelling air from your rectum (passing gas or farting) is normal. 4. You may not have a bowel movement for 1-3 days because of the colonoscopy prep. This is normal. 5. Go directly to the emergency room if you notice any of the following: Develop chills (warm to touch), or if you have a thermometer and your temperature is above 101 Difficulty breathing or difficultly swallowing Persistent vomiting Severe abdominal pain, other than gas cramps Severe chest pain Black, tarry stools Any bleeding ? exceeding one tablespoon 6. Call your physician if the site where your intravenous was started becomes red, swollen, painful, and warm to touch. 7. Your physician has reviewed your pre-procedure medications. Please continue to take those medications as previously ordered. You will be given specific information/education regarding any changes to your medications before leaving. Activity:: Activity as Tolerated Diet:: As Tolerated Discharge Orders Discharge Orders: Discharge Order (Routine); Ordered 11/15/24 Ordered By: Ab Pickens DS: Diagnosis Discharge Diagnosis (1) Encounter for screening colonoscopy: Status: Acute Asessment and Plan: Negative screening colonoscopy
--- NOTE | 2024-11-15 10:04 | W.COLOREPORT ---
Date of service: 11/16/24 Time of Service: 13:19 Colonoscopy Report Date of procedure: 11/16/24 Pre-op diagnosis general: screening colonoscopy Post-op diagnosis procedure note: other (Diverticulosis otherwise negative screening colonoscopy) Procedure: colonoscopy Surgeon: Ab Pickens Anesthesia Type: General:No Airway Estimated blood loss (mL): 0 Pathology: none sent Complications: None Disposition: same day Indications: Estrella is a 59 year old woman who needs a screening colonoscopy Prep: Miralax/Dulcolax Procedure Start Time: 12:38 Procedure End Time: 13:10 Retraction Time: 14 Findings: Occasional sigmoid diverticula Procedure Description: After the induction of anesthesia, and with the patient in left lateral decubitus position, I began by performing an external anorectal exam.? Perineum and skin were normal, as was the anal verge.? There is minimal redundancy of perianal skin skin tags consistent with external hemorrhoids.? Next, I performed a digital rectal exam.? I did not appreciate any abnormal findings.? Next, I advanced a colonoscope into the rectal vault.? I performed retroflexion.? This appeared normal.? Using insufflation, I then advanced the colonoscope beyond the rectal folds and into the sigmoid colon before advancing towards the cecum.? The quality of the prep was adequate.? The scope was noted to be in the cecum by identification of the ileocecal valve and appendiceal orifice.? I then began withdrawing the colonoscope using repeated irrigation as necessary for full evaluation of the colonic mucosa. ?There were few diverticula within the sigmoid segment. once the scope was withdrawn to the level of the rectum, great care was taken to examine portions of the rectal folds.? Finally, the scope was withdrawn and the patient was brought to the same-day surgery recovery unit as the anesthetic wore off. ?The findings and instructions were shared with the patient prior to discharge. [place] Bowel Prep [place] Bowel Prep Right Colon: 2 Left Colon: 3 Transverse Colon: 3 Total Score: 8
[2024-11-16 10:01] VITALS: BP 126/80; PULSE 57; RESP 16; TEMP 36.2; O2SAT 100
[2024-11-16] MEDS: Lactated Ringers 1,000 ML 80 ML IV (10:19)
--- NOTE | 2024-11-16 10:21 | W.ANESPRE ---
General Info Date of Service Date Performed: 11/16/24 Height: 5 ft 7 in Weight: 62.1 kg Body Mass Index (BMI): 21.4 Surgical Procedure: Operation Date: 11/16/24 11:35 Proposed Procedure Side Surgeon p Chester Pickens MD Meds Allergies and Home Medications Allergies Allergy/AdvReac Type Severity Reaction Status Date / Time penicillin V Allergy Other (See Verified 11/16/24 10:03 Comment) Home Medication ?Medication ?Instructions ?Recorded cholecalciferol (vitamin D3) 25 1,000 unit PO DAILY 09/15/18 mcg (1,000 unit) capsule estradiol 0.01% (0.1 mg/gram) 1 appful vaginal DAILY 10/15/24 vaginal cream (Estrace) Current Visit Medications: Current Medications Generic Name Dose Route Start Last Admin Trade Name Freq PRN Reason Stop Dose Admin Ringer's Solution 1,000 mls @ 80 mls/hr 11/16/24 06:00 11/16/24 10:19 IV 11/16/24 23:59 80 mls/hr INFUSION ALEXANDRA Administration IV Miscellaneous Supplies 1 each 11/16/24 06:00 Iv Access IV 11/16/24 23:59 DIRECTED ALEXANDRA Ondansetron HCl 4 mg 11/15/24 10:05 Ondansetron 4 Mg/2 Ml Vial IVP 12/15/24 10:04 Q4H PRN PRN Nausea / Vomiting Sodium Chloride 0 ml 11/16/24 06:00 Normal Saline Flush 10 Ml Syr IV 11/16/24 23:59 PRN PRN Sodium Chloride 0 ml 11/16/24 06:00 Normal Saline 10 Ml Vial IJ 11/16/24 23:59 DIRECTED PRN Sterile Water 0 ml 11/16/24 06:00 Water,Injection,Sterile 10 Ml Vial IJ 11/16/24 23:59 DIRECTED PRN PFSH Active Problems Active Problems: Problem Status Onset Code Encounter for screening colonoscopy Acute Z12.11 Medical History Medical History (Updated 11/16/24 @ 10:09 by Ruthie Jo RN) Afib Pt. states she does not have Afib Postmenopausal bleeding Surgical History Surgical History History of delivery Tobacco Smoking/Tobacco Use Status: Never Passive smoking exposure: No Alcohol Alcohol Intake: current Alcohol intake frequency: a few times a week Alcohol type: wine Substance Use Substance use: Never Substance use type: does not use Vital Signs and Lab Results Vital Signs Most Recent Vital Signs in EMR: Most Recent Vital Signs Temp Pulse Resp BP Pulse Ox 36.2 C L 57 L 16 126/80 100 11/16/24 10:01 11/16/24 10:01 11/16/24 10:01 11/16/24 10:01 11/16/24 10:01 Lab Results Blood Type / Crossmatch: No Data to Display Complete Blood Count: No Data to Display Complete Metabolic Panel: No Data to Display Liver Function Panel: No Data to Display Coagulation Panel: No Data to Display Cardiac Panel: No Data to Display Arterial Blood Gas: No Data to Display Venous Blood Gas: No Data to Display Pancreas Panel: No Data to Display Thyroid Panel: No Data to Display Infectious Disease: No Data to Display Blood Cultures: No Data to Display Toxicology Panel: No Data to Display Anesthesia Assessment and Plan Anesthesia History Personal History: No History of Anesthesia Complications Family History: No Family History of Anesthesia Complications Exercise Tolerance Exercise Tolerance: Metabolic Equivalents>4 Cardiac & Pulmonary Exam Cardiac Exam: Normal S1/S2 Heart Sounds Pulmonary Exam: Clear Bilateral Breath Sounds Implantable Cardiac Device Does patient have a Pacemaker or an ICD?: No Airway Exam Known Difficult Airway: No Mallampati Class: 4 Mouth Opening: Narrow (< 3cm) Thyromental Distance: Less than 3 cm Neck Range of Motion: Full ROM Neck Circumference: Normal Teeth Condition: Normal Dentition ASA Classification ASA Score: ASA 2 Emergency Case?: No NPO Status NPO Status: NPO Clears >2 hours, Solids >8 hours Anesthesia Plan Resuscitation Status: Full Code Anesthesia Technique: General Anesthesia Airway Planned: Natural Airway Monitors Used: Standard Monitors Preoperative Comments:: 59 yo female for colo. Sig PMHx: afib (denies), never smoker, occ EtOH. EKG: sinus. ECHO: LVEF 66%, no sig valve issues. Previous Anes: - d/c, prop, natural airway, no issues.
[2024-11-16 10:26] VITALS: BMI 21.4
[2024-11-16 13:15] VITALS: BP 118/71; PULSE 54; RESP 18; TEMP 36.4; O2SAT 98
[2024-11-16 13:38] VITALS: BP 107/69; PULSE 53; RESP 20; O2SAT 100
--- NOTE | 2024-11-16 15:21 | W.ANESPOSTOP ---
Postoperative Evaluation Date, Time and Location Date Performed: 11/16/24 Time Performed: 13:15 Patient Location: Day Surgery Unit Vital Signs Most Recent Imported Vital Signs: Most Recent Vital Signs Temp Pulse Resp BP Pulse Ox 36.4 C L 53 L 20 107/69 100 11/16/24 13:15 11/16/24 13:38 11/16/24 13:38 11/16/24 13:38 11/16/24 13:38 Pain Score Most Recent Pain Score: Most Recent Pain Score Pain Level 0 11/16/24 10:01 Assessment Mental Status: Awake (Alert & Oriented to Patient Baseline) Airway and Respiratory Function: Patent airway with normal (patient baseline) respiratory exam Cardiovascular Function: Hemodynamically Stable Hydration Status: Adequately Hydrated Nausea & Vomiting: No Nausea or Vomiting Pain: Pt. Denies Any Pain Peripheral Nerve Block: Patient did not receive a nerve block
== END 2024-11-16 13:55 | disposition home or self-care (01) ==
LOC: SUR 09:50
PROVIDERS: PCP Physician Assistant Medical; Visit Provider Surgery
PROC: 0DJD8ZZ Inspection of Lower Intestinal Tract, Via Natural or Artificial Opening Endoscopic (ICD-10-PCS; CPT 45378; principal; 2024-11-16 11:30)
DX: Z12.11 Encounter for screening for malignant neoplasm of colon (principal); K57.30 Diverticulosis of large intestine without perforation or abscess without bleeding
CPT/HCPCS: 45378; J2704

== ENCOUNTER 2024-11-25 00:42 | Outpatient (CLI) | payer OTHER, SELFPAY ==
--- NOTE | 2024-11-25 | DI.MAMMO_ITS ---
Exam(s) MAMMO SCREENING EXAM: MAMMO SCREENING CLINICAL HISTORY: Screening, Z12.31 TECHNIQUE: Bilateral full field digital CC and MLO mammographic images were obtained with 3D tomosyn thesis and utilizing computer aided detection (CAD). COMPARISON: Available for comparison. FINDINGS: Masses/Architectural Distortion: No suspicious masses or areas of architectural distortion are presen t. There is stable breast nodules. Microcalcifications: No suspicious pleomorphic-type are seen. Skin Thickening/Nipple Retraction: None. IMPRESSION: 1. No significant interval change with no specific features of malignancy noted. 2. Unless there is more urgent need, screening mammography is recommended, as per [employer] guidelines. BI-RADS Category 2 - Benign Findings Breast Density - Category C - Heterogeneously dense Breast density category C or D implies that the patient has dense breast tissue. Dense breast tissue is very common and is not abnormal but dense breast tissue can make it harder to find cancer on a ma mmogram. Also, dense breast tissue may increase their breast cancer risk. This information about the result of the mammogram report was provided to the patient to raise their awareness. Use this report when you speak with the patient about their risks for breast cancer, which includes their family hist ory. At that time, you may recommend for more screening tests (Ultrasound or MRI) as they might be us eful based on their risk. A negative radiographic report should not delay biopsy if a dominant or clinically suspicious mass is present. Up to ten percent of cancers are not identified on mammography. A negative report may reinforce clinical impression. Adenosis and dense breasts may obscure an underlying neoplasm. False positive reports average 6 to 10%. Patient will receive a letter notifying them of these results.
== END 2024-11-25 01:02 ==
PROVIDERS: PCP Physician Assistant Medical; Visit Provider Physician Assistant Medical
DX: Z12.31 Encounter for screening mammogram for malignant neoplasm of breast (principal); R92.333 Mammographic heterogeneous density, bilateral breasts
CPT/HCPCS: 77063; 77067